=== PATIENT | female | born 1935 | race Caucasian/White ===

== ENCOUNTER 2016-08-01 12:32 | Emergency (ER) | payer MEDICARE, OTHER ==
[2016-08-01 13:33] LABS: #Lymphocytes 1.1 thou/uL (1.20-3.40); #Monocytes 0.5 thou/uL (0.11-0.59); #Neutrophils 4.2 thou/uL (1.40-6.50); %Basophils 0.7 % (0.0-1.0); %Lymphocytes 19.2 % (21.0-51.0); %Monocytes 8.5 % (0.0-10.0); Mean Platelet Volume 9.1 fL (7.4-10.4); Red Blood Cell (RBC) Count 4.01 mill/uL (4.20-5.40); White Blood Cell (WBC) Count 5.9 thou/uL (4.8-10.8)
[2016-08-01] MEDS ORDERED: Sulfameth/Trimethoprim DS 800-160mg TAB ONE (13:59)
--- NOTE | 2016-08-01 14:20 | RAD ---
RIGHT TOES 2 VIEWS: HISTORY: Toe pain. FINDINGS: The bones are demineralized. Postoperative changes with a surgical screw in the base of the first m etatarsal are noted. There is arthritic change of the first metatarsophalangeal joint. There are n o signs of fracture or any acute bony findings. IMPRESSION: Postoperative changes of the first metatarsal and diffuse bony demineralization. POS: QUYNH
--- NOTE | 2016-08-01 14:51 | ERRECORD ---
[facility] EMERGENCY RECORD HPI CELLULITIS (13:10 JLOY) CHIEF COMPLAINT: Patient presents for evaluation of drainage, to Pt with 3 weeks of worseing infection in the right 2nd digit after cutting the skin while trimming her nails. Slowly worsening and her saw it today and told her to go to the ER., Patient presents for evaluation of erythema, Patient presents for evaluation of pain, Patient presents for evaluation of swelling. HISTORIAN: History provided by patient. MECHANISM: Possible mechanism nail cutting. LOCATION: Symptoms are localized, most severe in the toe, on the right. TIME COURSE: Gradual onset of symptoms, Symptoms are worsening, are constant. ASSOCIATED WITH: Associated with drainage, intermittent, No associated fever, No associated nausea, No associated proximal streaking. COMPLICATING FACTORS: No complicating factors. EXACERBATED BY: Patient's condition exacerbated by nothing. RELIEVED BY: Patient's condition relieved by nothing. ROS (13:12 JLOY) CONSTITUTIONAL: Historian denies chills, denies fever. ENT: Historian reports rhinorrhea, denies sore throat. RESPIRATORY: Historian denies cough, denies shortness of breath. GI: Historian denies nausea, denies vomiting. SKIN: Historian reports cellulitis, reports rash. NEUROLOGIC: Historian denies focal weakness, denies paralysis, denies paresthesias, denies sensory changes. PAST MEDICAL HISTORY MEDICAL HISTORY: No past medical history of pulmonary disease, HX breast cancer. Patient denies any history of hypertension or COPD. (12:43 LHAL) FEMALE SURGICAL HISTORY: Left mastectomy. (12:43 LHAL) PSYCHIATRIC HISTORY: No previous psychiatric history, Patient denies any psychiatric history. (12:43 LHAL) SOCIAL HISTORY: Patient drinks every day, less than 5 drinks per day, Patient denies drug use, Patient is a former tobacco user, smoked cigarettes, Tobacco history notes: quit 1.5 years ago but "I still do the vapor, I dont know if it has nicotine". (12:43 LHAL) FAMILY HISTORY: Maternal history of diabetes, Sibling history of cardiac disease:, coronary artery disease, Sibling history of neurologic disorder, ischemic cerebral vascular accident. (12:43 LHAL) NOTES: Nursing records reviewed, Agree with nursing records. (13:13 JL) &a-1R&a+25V*p+0X*z6120X*c202B*c15G*c2P*p-0X&a-25V&a+1R Name: Josephine Boyd : 1935 F81 MedRec: [id number] AcctNum: [id number] Prepared: MonAug 01, 2016 17:53 by Interface Page 1 of 3 pMD [facility] EMERGENCY RECORD KNOWN ALLERGIES iodine: Reaction: Rash CURRENT MEDICATIONS No recorded medications VITAL SIGNS (12:34 [facility]) VITAL SIGNS: BP: 126/68 (Sitting), Pulse: 94 (Regular), Resp: 20 (Non-Labored), Temp: 97.7 (Oral), Pain: 10 (Constant), O2 sat: 96 on Room Air, Time: 08/01/2016 12:34. PHYSICAL EXAM (13:12 JL) CONSTITUTIONAL: Vital signs reviewed, Patient appears non toxic, Patient alert and oriented to person, place and time. EYES: Eye exam included findings of eyelids normal to inspection, Pupils equally round and reactive to light, Conjunctiva normal. ENT: Mouth exam normal, mucous membranes moist. RESPIRATORY CHEST: Respiratory exam included findings of no respiratory distress, Chest exam included findings of chest movement symmetrical. LOWER EXTREMITY: Lower extremity exam included findings of inspection abnormal, Right 2nd digit with mild swelling and redness on distal 1/2 of toe. Yellow crusting on tip with small ulceration noted on the pad of the distal segment. Mild ttp. Mild swelling. No warmth., Range of motion normal, Pedal pulse normal, no cyanosis, no clubbing. NEURO: Priti coma scale 15, Neuro exam findings include patient oriented to person, place and time, Speech normal. SKIN: Skin exam included findings of skin warm, dry, and normal in color, see toe above. PSYCHIATRIC: Normal affect. MEDICATION ADMINISTRATION SUMMARY Drug Name: Bactrim DS, Dose Ordered: 1 tab(s), Route: Oral, Status: Given, Time: 13:58 08/01/2016, Detailed record available in Medication Service section. PROBLEM LIST No recorded problems DIAGNOSIS (13:57 JL) FINAL: PRIMARY: CELLULITIS OF UNSPECIFIED TOE. PRESCRIPTION (13:57 JL) Bactrim DS: TABLET : 800 mg-160 mg : ORAL : Quantity: 1 Unit: tab(s) Route: ORAL Schedule: 2 times a day Dispense: 20 May substitute. Refills: No Refills . NOTES: No Refills. &a-1R&a+25V*p+0X*r2815N*c202B*c15G*c2P*p-0X&a-25V&a+1R Name: Josephine Boyd : 1935 F81 MedRec: [id number] AcctNum: [id number] Prepared: MonAug 01, 2016 17:53 by Interface Page 2 of 3 pMD [facility] EMERGENCY RECORD DISPOSITION PATIENT: Disposition Type: Discharge, Disposition: *Discharge Home. (13:57 FEDERICO) Patient left the department. (14:07 TIFFANIE) Ramirez: FEDERICO=MD Sommers Joshua LHAL=LETTY Nolan, Jaylene &a-1R&a+25V*p+0X*e5907W*c202B*c15G*c2P*p-0X&a-25V&a+1R Name: Josephine Boyd : 1935 F81 MedRec: [id number] AcctNum: [id number] Prepared: MonAug 01, 2016 17:53 by Interface Page 3 of 3 pMD MTDD
--- NOTE | 2016-08-01 14:55 | PICIS ---
[facility] EMERGENCY RECORD TRIAGE (MonAug 01, 2016 12:41 LHAL) TRIAGE NOTES: REDNESS SWELLING TO RT 2ND TOE AFTER TRIMMING NAIL AND CUTTING SKIN 3 WK AGO. (MonAug 01, 2016 12:41 LHAL) PATIENT: NAME: Josephine Boyd, AGE: 81, GENDER: female, : Sat 1935, TIME OF GREET: MonAug 01, 2016 12:33, PREFERRED LANGUAGE: Thai, ETHNICITY: Not or , ECODE BILLING MAP: [facility], SSN: [id number], Zip Code: [address], KG WEIGHT: 76.66, PHONE: , , , PERSON ID: [id number]. (MonAug 01, 2016 12:41 LHAL) COMPLAINT: RIGHT FOOT INFECTED TOE. (MonAug 01, 2016 12:41 LHAL) ADMISSION: URGENCY: 4 Non Urgent, ADMISSION SOURCE: Home, TRANSPORT: CAR, BED: ER *TR1. (MonAug 01, 2016 12:41 LHAL) ASSESSMENT: Assessment: REDNESS, SWELLING TO RIGHT 2ND TOE X 3 WKS AFTER SHE CUT HER TOENAIL AND ACCIDENTALLY HER SKIN, Symptoms began 3 WK AGO. (12:43 LHAL) PAIN: Patient complains of pain described as, aching, on a scale 0-10 patient rates pain as 10, Location RIGHT SECOND TOE, Pain is constant, Aggravating factors:, Pain exacerbated by movement. 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 (12:43 LHAL) SIRS SCORING: Heart Rate 55-109 (0), Temp range 96.8-101.1 (0), respiratory rate 12-24 (0), Mental Status altered: no (0), Yes, Infection or Suspected Infection. (12:43 LHAL) TRIAGE SCREENING: Patient denies suicidal ideation, Patient denies presence of domestic violence. (12:43 LHAL) PROVIDERS: TRIAGE NURSE: Jaylene Nolan RN. (MonAug 01, 2016 12:41 LHAL) VITAL SIGNS: BP 126/68, (Sitting), Pulse 94, (Regular), Resp 20, (Non-Labored), Temp 97.7, (Oral), Pain 10, (Constant), O2 Sat 96, on Room Air, Time 08/01/2016 12:34. (12:34 LHAL) PREVIOUS VISIT ALLERGIES: iodine. (MonAug 01, 2016 12:41 LHAL) iodine. (12:43 LHAL) KNOWN ALLERGIES iodine: Reaction: Rash CURRENT MEDICATIONS No recorded medications VITAL SIGNS (12:34 LHAL) VITAL SIGNS: BP: 126/68 (Sitting), Pulse: 94 (Regular), Resp: 20 (Non-Labored), Temp: 97.7 (Oral), Pain: 10 (Constant), O2 sat: 96 on Room Air, Time: 08/01/2016 12:34. NURSING ASSESSMENT: SKIN (12:41 LHAL) &a-1R&a+25V*p+0X*n8020P*c202B*c15G*c2P*p-0X&a-25V&a+1R Name: Josephine Boyd : 1935 F81 MedRec: [id number] AcctNum: [id number] Prepared: MonAug 01, 2016 17:57 by Interface Page 1 of 6 pMD [facility] EMERGENCY RECORD CONSTITUTIONAL: Patient arrives ambulatory, Gait steady, History obtained from patient, Patient appears, uncomfortable, Patient cooperative, Patient alert, Oriented to person, place and time, Skin warm, Skin dry, Skin normal in color, Mucous membranes pink, Mucous membranes moist, Patient is well-groomed, 1235) AMBULATES TO BED 1 ON ER ARRIVAL SLOW STEADY GAIT USING CANE. PAIN: aching pain, burning pain, No radiation pain, Onset of pain FEW WKS, constant, on a scale 0-10 patient rates pain as 10, Pain exacerbated by, ambulation, PT TOOK TYLENOL THIS AM, OTHERWISE HASN'T BEEN TAKING PAIN MEDS. SKIN: Skin assessment findings include skin warm, Skin dry, Skin normal in color, Inspection findings include redness, to ENTIRE RIGHT SECOND TOE, Inspection findings include signs of infection, to RT SECOND TOE NEAR NAILBED, Inspection findings include no signs of trauma, Inspection findings include swelling, to RIGHT 2ND TOE, Notes: NO DRAINAGE NOTED TO NAILBED, PT HAS BEEN USING NEOSPORIN AND BETADINE TO CLEAN TOE, HASN'T BEEN GETTING BETTER, HASN'T SEEN MD FOR HER TOE OVER THE LAST FEW WKS. NOTES: Notes: PT CUT HER TOENAIL ON RIGHT SECOND TOE 3 WKS AGO, THEN ACCIDENTALLY CUT THE SKIN, NOW HAS RED SWOLLEN TOE X FEW WKS. SAFETY: Side rails up, Cart/Stretcher in lowest position, Family at bedside, Call light within reach, Hospital ID band on. NURSING PROCEDURE: DISCHARGE NOTE (14:05 LHAL) DISCHARGE: Patient discharged to home, ambulating with cane, family driving, accompanied by //partner, Summary of Care printed/ provided, Patient requested and was provided an electronic copy of Discharge Instructions, Transition record given to patient, Discharge instructions given to patient, Simple or moderate discharge teaching performed, by Judi NOLAN RN, Prescriptions given and instructions on side effects given, Name of prescription(s) given: BACTRIM DS, Medication reconciliation form given, and reviewed with patient, Above person(s) verbalized understanding of discharge instructions and follow-up care, Notes: DC HOME STABLE. BELONGINGS: Belongings and valuables with patient upon arrival to the Emergency Department include:. NURSING PROCEDURE: LAB DRAW (13:20 LHAL) PATIENT IDENTIFIER: Patient actively involved in identification process, Patient's identity verified by patient stating name, Patient's identity verified by patient stating date, Patient's identity verified by hospital ID [email or web address], Patient's identity verified by family member. LAB DRAW: Lab draw indicated for obtaining specimens for evaluation, Initial lab draw performed, by venipuncture, from right antecubital, in one attempt, Lab specimens labeled in the presence of the patient and sent to lab. &a-1R&a+25V*p+0X*w2576Z*c202B*c15G*c2P*p-0X&a-25V&a+1R Name: Josephine Boyd : 1935 F81 MedRec: [id number] AcctNum: [id number] Prepared: MonAug 01, 2016 17:57 by Interface Page 2 of 6 pMD [facility] EMERGENCY RECORD FOLLOW-UP: After procedure, dressing applied to site, After procedure, no swelling at site, After procedure, no active bleeding from site. SAFETY: Side rails up, Cart/Stretcher in lowest position, Family at bedside, Call light within reach, Hospital ID band on. NURSING PROCEDURE: NURSE NOTES NURSES NOTES: Patient examined by physician. (13:05 LHAL) Patient re-evaluated by physician. (13:59 LHAL) ORDER DETAILS Order Name: CBC with Differential, Status: Active, Time: 13:10 08/01/2016, User: FEDERICO, - Ordered for: MD Sommers Joshua, - Entered by: MD Sommers Joshua - [facility] Aug 01, 2016 13:10, - Quantity: 1, Order Name: CRP (Inflamatory), Status: Active, Time: 13:10 08/01/2016, User: FEDERICO, - Ordered for: MD Sommers Joshua, - Entered by: MD Sommers Joshua - [facility] Aug 01, 2016 13:10, - Quantity: 1, Order Name: XR Toe(s) Rt Min 2 View, Status: Active, Time: 13:09 08/01/2016, User: FEDERICO, - Ordered for: MD Sommers Joshua, - Entered by: MD Sommers Joshua - [facility] Aug 01, 2016 13:09, - Quantity: 1. MEDICATION ADMINISTRATION SUMMARY Drug Name: Bactrim DS, Dose Ordered: 1 tab(s), Route: Oral, Status: Given, Time: 13:58 08/01/2016, Detailed record available in Medication Service section. MEDICATION SERVICE Bactrim DS: Order: Bactrim DS (sulfamethoxazole/trimethoprim) - Dose: 1 tab(s) : Oral Ordered by: Fredis Sommers MD Entered by: Fredis Sommers MD MonAug 01, 2016 13:56 Documented as given by: Jaylene Nolan RN MonAug 01, 2016 13:58 Patient, Medication, Dose, Route and Time verified prior to administration. Amount given: ONE TAB, Site: Medication administered P.O., Correct patient, time, route, dose and medication confirmed prior to administration, Patient advised of actions and side-effects prior to administration, Allergies confirmed and medications reviewed prior to administration, Administered by Judi NOLAN RN, Patient in position of comfort, Side rails up, Cart in lowest position, Family at bedside. : Follow Up : No signs or symptoms of allergic reaction noted. (14:05 LHAL) &a-1R&a+25V*p+0X*s9022G*c202B*c15G*c2P*p-0X&a-25V&a+1R Name: Josephine Boyd : 1935 F81 MedRec: [id number] AcctNum: [id number] Prepared: MonAug 01, 2016 17:57 by Interface Page 3 of 6 pMD [facility] EMERGENCY RECORD HPI CELLULITIS (13:10 JL) CHIEF COMPLAINT: Patient presents for evaluation of drainage, to Pt with 3 weeks of worseing infection in the right 2nd digit after cutting the skin while trimming her nails. Slowly worsening and her saw it today and told her to go to the ER., Patient presents for evaluation of erythema, Patient presents for evaluation of pain, Patient presents for evaluation of swelling. HISTORIAN: History provided by patient. MECHANISM: Possible mechanism nail cutting. LOCATION: Symptoms are localized, most severe in the toe, on the right. TIME COURSE: Gradual onset of symptoms, Symptoms are worsening, are constant. ASSOCIATED WITH: Associated with drainage, intermittent, No associated fever, No associated nausea, No associated proximal streaking. COMPLICATING FACTORS: No complicating factors. EXACERBATED BY: Patient's condition exacerbated by nothing. RELIEVED BY: Patient's condition relieved by nothing. ROS (13:12 JLOY) CONSTITUTIONAL: Historian denies chills, denies fever. ENT: Historian reports rhinorrhea, denies sore throat. RESPIRATORY: Historian denies cough, denies shortness of breath. GI: Historian denies nausea, denies vomiting. SKIN: Historian reports cellulitis, reports rash. NEUROLOGIC: Historian denies focal weakness, denies paralysis, denies paresthesias, denies sensory changes. PAST MEDICAL HISTORY MEDICAL HISTORY: No past medical history of pulmonary disease, HX breast cancer. Patient denies any history of hypertension or COPD. (12:43 LHAL) FEMALE SURGICAL HISTORY: Left mastectomy. (12:43 LHAL) PSYCHIATRIC HISTORY: No previous psychiatric history, Patient denies any psychiatric history. (12:43 LHAL) SOCIAL HISTORY: Patient drinks every day, less than 5 drinks per day, Patient denies drug use, Patient is a former tobacco user, smoked cigarettes, Tobacco history notes: quit 1.5 years ago but "I still do the vapor, I dont know if it has nicotine". (12:43 LHAL) FAMILY HISTORY: Maternal history of diabetes, Sibling history of cardiac disease:, coronary artery disease, Sibling history of neurologic disorder, ischemic cerebral vascular accident. (12:43 LHAL) NOTES: Nursing records reviewed, Agree with nursing records. (13:13 JLOY) &a-1R&a+25V*p+0X*s4316Q*c202B*c15G*c2P*p-0X&a-25V&a+1R Name: Josephine Boyd : 1935 F81 MedRec: [id number] AcctNum: [id number] Prepared: MonAug 01, 2016 17:57 by Interface Page 4 of 6 pMD [facility] EMERGENCY RECORD PHYSICAL EXAM (13:12 JLOY) CONSTITUTIONAL: Vital signs reviewed, Patient appears non toxic, Patient alert and oriented to person, place and time. EYES: Eye exam included findings of eyelids normal to inspection, Pupils equally round and reactive to light, Conjunctiva normal. ENT: Mouth exam normal, mucous membranes moist. RESPIRATORY CHEST: Respiratory exam included findings of no respiratory distress, Chest exam included findings of chest movement symmetrical. LOWER EXTREMITY: Lower extremity exam included findings of inspection abnormal, Right 2nd digit with mild swelling and redness on distal 1/2 of toe. Yellow crusting on tip with small ulceration noted on the pad of the distal segment. Mild ttp. Mild swelling. No warmth., Range of motion normal, Pedal pulse normal, no cyanosis, no clubbing. NEURO: Priti coma scale 15, Neuro exam findings include patient oriented to person, place and time, Speech normal. SKIN: Skin exam included findings of skin warm, dry, and normal in color, see toe above. PSYCHIATRIC: Normal affect. EVENTS TRANSFER: Triage to Emergency Emergency Room *TR1. (MonAug 01, 2016 12:41 LHAL) Removed from Emergency Emergency Room *TR1. (14:07 LHAL) PROBLEM LIST No recorded problems DIAGNOSIS (13:57 JLOY) FINAL: PRIMARY: CELLULITIS OF UNSPECIFIED TOE. DISPOSITION PATIENT: Disposition Type: Discharge, Disposition: *Discharge Home. (13:57 JLOY) Patient left the department. (14:07 [facility]) INSTRUCTION (13:58 [facility]) DISCHARGE: CELLULITIS. FOLLOWUP: Tyler [place], Jose Alfredo PERSON, [facility], [facility] [address] [facility] [id number], [phone], Follow up with Primary Care Physician in 3-4 days. PRESCRIPTION (13:57 [facility]) Bactrim DS: TABLET : 800 mg-160 mg : ORAL : Quantity: 1 Unit: tab(s) Route: ORAL Schedule: 2 times a day Dispense: 20 May substitute. Refills: No Refills . NOTES: No Refills. &a-1R&a+25V*p+0X*e0851F*c202B*c15G*c2P*p-0X&a-25V&a+1R Name: Josephine Boyd : 1935 F81 MedRec: [id number] AcctNum: [id number] Prepared: MonAug 01, 2016 17:57 by Interface Page 5 of 6 pMD [facility] EMERGENCY RECORD IMAGING (14:06 [facility]) *DISCHARGE INSTRUCTIONS RECEIPT: Image captured from scanner. *SUPPLY CHARGE SHEET: Image captured from scanner. ADMIN DIGITAL SIGNATURE: LETTY Nolan, Jaylene. (14:07 [facility]) MD Sommers Joshua. (17:46 [facility]) Ramirez: FEDERICO=MD Sommers Joshua AL=LETTY Nolan Linda &a-1R&a+25V*p+0X*c5809I*c202B*c15G*c2P*p-0X&a-25V&a+1R Name: Josephine Boyd : 1935 F81 MedRec: [id number] AcctNum: [id number] Prepared: MonAug 01, 2016 17:57 by Interface Page 6 of 6 pMD MTDD
== END 2016-08-01 14:05 | disposition home or self-care (01) ==
LOC: NAV ERS 12:32
DX: L03.031 Cellulitis of right toe (principal); Z85.3 Personal history of malignant neoplasm of breast; Z90.12 Acquired absence of left breast and nipple; Z87.891 Personal history of nicotine dependence
CPT/HCPCS: 85025; 86140; 99283

== ENCOUNTER 2016-11-18 14:00 | Inpatient (IN) | payer MEDICARE, OTHER ==
[2016-11-18 14:40] LABS: Band 4 % (5-11); Hemoglobin 12.2 g/dL (12.0-16.0); Lymphocytes 7 % (21-51); MDiff Complete? YES; Mean Corpuscular HGB CONC 32.6 g/dL (32.0-36.0); Mean Corpuscular Hemoglobin 28.8 pg (27.0-31.0); Mean Corpuscular Volume 88.4 fl (81.0-99.0); Mean Platelet Volume 8.7 fL (7.4-10.4); Monocytes 5 % (0-10); Neutrophil 83 % (42-75); PLT Morphology Comment Appears Adequate; Platelet Count 194 thou/uL (130-400); RBC Distribution Width 13.2 % (11.5-14.5); RBC Morphology Normal; Red Blood Cell (RBC) Count 4.21 mill/uL (4.20-5.40)
[2016-11-18 14:45] LABS: Bilirubin Negative (Negative); Blood, Urine Negative (Negative); Glucose, Urine (Dipstick) 250 mg/dL (Negative); Leukocyte Negative (Negative); Nitrite Negative (Negative); Protein, Urine (Dipstick) 100 mg/dL (Neg-Trace); Urobilinogen 0.2 mg/dL (0.2-1.0)
[2016-11-18 14:47] LABS: ALT (SGPT) 15 U/L (0-55); AST (SGOT) 19 U/L (5-34); Albumin 3.8 g/dL (3.4-4.8); Alkaline Phosphatase 100 U/L (40-150); Anion Gap 20 mmol/L (10-20); BUN (Urea Nitrogen) 24 mg/dL (9.8-20.1); Bilirubin, Total 0.7 mg/dL (0.2-1.2); CK (CPK) 212 U/L (29-168); Calc. Creatinine Clearance 0 mL/min (70-130); Calcium 9.7 mg/dL (7.8-10.44); Carbon Dioxide 20 mmol/L (23-31); Chloride 103 mmol/L (98-107); Estimated GFR-MDRD 34; Globulin 3.6 g/dL (2.4-3.5); Glucose 202 mg/dL (83-110); Protein, Total 7.4 g/dL (5.8-8.1); Sodium 139 mmol/L (136-145)
[2016-11-18 14:47] LABS: Clarity Hazy (Clear); Specific Gravity, Urine 1.028 (1.002-1.036)
[2016-11-18 14:49] LABS: Troponin I 0.059 ng/mL (< 0.028)
[2016-11-18 14:50] LABS: Bacteria/HPF 1+ HPF (None Seen); RBC/HPF None Seen HPF (0-3); WBC/HPF 0-3 HPF (0-3)
[2016-11-18] MEDS ORDERED: Sodium Chloride 0.9% 1,000 ML IV SCH (16:45)
[2016-11-18] MEDS ORDERED: Sodium Chloride 0.9% 10 ML ONE (16:47)
[2016-11-18 17:09] VITALS: BMI 28.0
[2016-11-18] MEDS ORDERED: Ondansetron ODT 4 MG TAB PO PRN (20:35)
[2016-11-18] MEDS: Temazepam 15 MG CAP PO SCH (21:01)
[2016-11-18] MEDS: Famotidine 20 MG TAB PO SCH (21:01)
[2016-11-18] MEDS: Carvedilol 6.25 MG TAB PO SCH (21:02)
[2016-11-18] MEDS: Acetaminophen 325 MG TAB PO PRN (21:06)
[2016-11-19] MEDS: Sodium Chloride 0.9% 1,000 ML IV SCH ×2 (00:10→07:00)
[2016-11-19] MEDS: traMADol HCl 50 MG TAB PO PRN ×2 (00:26→15:03)
--- NOTE | 2016-11-19 01:37 | HP ---
DATE OF ADMISSION: 11/18/2016 PATIENT OF: Dr. Jose Alfredo Jones. HISTORY OF PRESENT ILLNESS: The patient is a 81-year-old white female with history of hypertension, gastroesophageal reflux, hypothyroidism, and recurrent weakness and ataxia for the last several wee ks. She states that this has been related to some weakness mainly in her left leg. She has been ev aluated by Dr. Jones with MRI showing possible AV malformation, but has been seen by Neurosurgery with Neurosurgery recommended cervical spine MRI and was found to have degenerative changes with no high-grade stenosis. Chest CT has only showed left anterior nodule and left adrenal mass, but abdom inal and pelvic CT was done to evaluate this and has shown no evidence of any significant abnormalit ies. This was done without contrast to evaluate for kidney stones. She has been found to have bila teral adrenal adenomas in the past and gallstones, but felt like these were asymptomatic. She has h ad a history of recurrent edema of her legs, which has been treated with torsemide 20 mg daily for c ongestive heart failure, but echocardiogram has shown ejection fraction of 65%-70% with hyperdynamic ventricle and spinal angiogram showed no obvious source for the spinal or AV fistula. She has not had any fever, chills, or significant pain in her leg. She feels strong over entire body, but today , fell and could not get up. She was on the floor for one hour before her came in and broug ht her to the emergency room. She was found to have an elevated CK and decreased renal function wit h a creatinine of 1.49, GFR of 34, and a CK slightly elevated to 212 and was felt to possibly have m ild rhabdomyolysis and acute on chronic renal failure. Her most recent creatinine prior to this chandu wed creatinine of 1.2 with GFR of 43. She was also found in the emergency room to have a slightly e levated white count of 11,000 with a shift to the left 83%. PAST MEDICAL HISTORY: She was felt to require admission for IV fluids for evaluation of her weaknes s in physical therapy. She had been having physical therapy at home, but has not had intensive phys ical therapy in the hospital. Her past medical history otherwise has shown to have a history of elijah ast cancer, status post left mastectomy 30 years ago with no recurrence. Medical history is also p ositive for distant history of smoking with a history of COPD, but the patient denies any cough, chandu rtness of breath, history of gastroesophageal reflux controlled with medication and hiatal hernia, h istory of anxiety and depression, history of hypothyroidism. ALLERGIES: She has a history of allergies to IODINE intermediate with hives, but has had angiogram in the past. SOCIAL HISTORY: She is a nonsmoker, as mentioned above, lives with her . MEDICATIONS: As above include venlafaxine 150 mg daily, temazepam 15 mg daily, furosemide 20 mEq da lindsey, Micro-K 8 mEq daily, carvedilol 6.25 twice daily. REVIEW OF SYSTEMS: HEENT: She denies any headaches, dizziness, change in vision or hearing, hoarseness or dysphagia. PULMONARY: She denies cough, sputum production, pneumonia, asthma, tuberculosis. CARDIOVASCULAR: She denies any chest pain, orthopnea, paroxysmal nocturnal dyspnea or edema. GASTROINTESTINAL: She denies nausea, vomiting, diarrhea, constipation, abdominal pain. GENITOURINARY: Denied dysuria, hematuria, nocturia. MUSCULOSKELETAL: Has pain in both knees now since the fall, but no chronic pain. NEUROLOGIC: She has the above-mentioned difficulty with balance, multiple falls over the last sever al months, and some weakness in her left leg. PHYSICAL EXAMINATION: GENERAL: The patient is an elderly white female, alert and oriented, lucid, and a fair historian. VITAL SIGNS: Blood pressure 125/57, O2 sats 95%, temperature 97, pulse 92, respirations 20. HEENT: Pupils are equal, round, and react to light and accommodation. Sclerae are anicteric. Conj unctivae pale. Oral mucous membranes slightly hydrated. NECK: Supple. There are no nodes or masses. JVP is not elevated. LUNGS: Clear. CARDIAC EXAMINATION: Shows a regular rhythm, S4, no gallops or murmurs. ABDOMEN: Soft, nontender with no masses or organomegaly. SKIN/EXTREMITIES: Show erythema and mild tenderness and warmth of the left foot below the ankle. T here is 1+ edema in both legs, but she has decreased pulses bilaterally and no palpable pedal pulses on the left. There are multiple contusions and abrasions on both arms. ASSESSMENT: A 81-year-old white female with a history of recurrent falling spells and ataxia who webb s fallen today, remained on the floor for hours, has developed mild rhabdomyolysis and an mild acute on chronic renal failure and admitted to the hospital for IV fluids and rehydration. She, however, has had neurosurgical evaluation, but has not had a vascular evaluation for weakness in her left le g and now has erythema, warmth, and tenderness of her left foot consistent with possible ischemia an d/or infection. PLAN: Obtain CRP, sed rate. We will start on Ancef 1 gram IV piggyback q.8 hours, may require an a ngiogram in the future, but as she has an IODINE allergy, we will probably require protocol for this at [place] next week. We will continue on IV normal saline at 125 an hour. Repeat basic met profile and CK in the a.m. with possibly decrease rate at that time to 75/50 mL per hour. We will consult physical therapy for strengthening and ataxia training. We will hold furosemide and potassium at th is time.
[2016-11-19 06:58] LABS: Anion Gap 13 mmol/L (10-20); Globulin 2.2 g/dL (2.4-3.5)
[2016-11-19] MEDS: Acetaminophen 325 MG TAB PO PRN ×2 (06:59→15:03)
[2016-11-19 07:14] LABS: Band 3 % (5-11); Eosinophils 1 % (0-10); Hemoglobin 10.1 g/dL (12.0-16.0); Lymphocytes 26 % (21-51); MDiff Complete? YES; Mean Corpuscular HGB CONC 32.5 g/dL (32.0-36.0); Mean Corpuscular Hemoglobin 29.2 pg (27.0-31.0); Mean Corpuscular Volume 89.8 fl (81.0-99.0); Mean Platelet Volume 9.5 fL (7.4-10.4); Neutrophil 70 % (42-75); PLT Morphology Comment Appears Adequate; Platelet Count 144 thou/uL (130-400); RBC Distribution Width 13.7 % (11.5-14.5); RBC Morphology Normal; Red Blood Cell (RBC) Count 3.45 mill/uL (4.20-5.40); White Blood Cell (WBC) Count 4.8 thou/uL (4.8-10.8)
[2016-11-19 07:19] LABS: CKMB 7.1 ng/mL (0-6.6)
[2016-11-19 07:21] LABS: ALT (SGPT) 14 U/L (0-55); AST (SGOT) 22 U/L (5-34); Albumin 2.9 g/dL (3.4-4.8); Alkaline Phosphatase 78 U/L (40-150); BUN (Urea Nitrogen) 15 mg/dL (9.8-20.1); Bilirubin, Total 0.6 mg/dL (0.2-1.2); CK (CPK) 366 U/L (29-168); Calc. Creatinine Clearance 51 mL/min (70-130); Calcium 8.3 mg/dL (7.8-10.44); Carbon Dioxide 21 mmol/L (23-31); Chloride 112 mmol/L (98-107); Estimated GFR-MDRD 52; Glucose 95 mg/dL (83-110); Potassium 3.5 mmol/L (3.5-5.1); Protein, Total 5.1 g/dL (5.8-8.1); Sodium 142 mmol/L (136-145)
[2016-11-19 08:32] LABS: Troponin I 0.039 ng/mL (< 0.028)
[2016-11-19] MEDS: Potassium Chloride 8 MEQ TAB PO SCH (09:16)
[2016-11-19] MEDS: Famotidine 20 MG TAB PO SCH ×2 (09:16→21:03)
[2016-11-19] MEDS: Venlafaxine HCl XR 75 MG CAP PO SCH (09:17)
[2016-11-19] MEDS: Carvedilol 6.25 MG TAB PO SCH ×2 (09:17→21:03)
[2016-11-19] MEDS: Dextrose 5 % And 0.9 % NaCl 1,000 ML IV SCH ×2 (10:14→21:26)
--- NOTE | 2016-11-19 10:56 | PRG ---
DATE OF SERVICE: 11/19/2016 SUBJECTIVE: The patient feels the same today, slept well through the night with no nausea or vomiti ng, no pain in her leg or weakness, but states she is very dizzy and still unable to walk and has no use in her left leg. OBJECTIVE: Shows her troponin came back negative at 0.039, although her CK has increased further to 366, creatinine is improved to 1.02 from 1.49, BUN is 15, chloride is 112, bicarbonate is 21, sodiu m is 142, potassium 3.5. C-reactive protein returned normal less than 0.5. BNP was slightly elevat ed at 121. Sedimentation rate returned normal at 19. White count 4800, hematocrit 31, hemoglobin 1 0. Lungs are clear. Cardiac examination shows regular rhythm. Neurological shows mild weakness in the left leg. There is decreased erythema, persistent edema of the left leg and decreased warmth. ASSESSMENT: Resolving acute renal failure secondary to rhabdomyolysis, persistent elevated CK from rhabdomyolysis with negative troponin, persistent weakness in the left foot with some erythema with a negative neurological evaluation, concern about possible latent peripheral vascular disease with n o evidence of acute infection. PLAN: Repeat troponin in the morning. Continue PT, OT. Discuss a CT angiogram with prophylaxis fo r IODINE allergy with patient. Decrease IV fluids to 75 an hour and repeat base met profile in the a.m.
[2016-11-19] MEDS: Temazepam 15 MG CAP PO SCH (21:04)
[2016-11-20] MEDS: Acetaminophen 325 MG TAB PO PRN ×2 (05:29→10:20)
[2016-11-20 06:04] LABS: Anion Gap 12 mmol/L (10-20); BUN (Urea Nitrogen) 14 mg/dL (9.8-20.1); CK (CPK) 251 U/L (29-168); Calc. Creatinine Clearance 53 mL/min (70-130); Calcium 8.3 mg/dL (7.8-10.44); Carbon Dioxide 20 mmol/L (23-31); Chloride 113 mmol/L (98-107); Estimated GFR-MDRD 55; Glucose 110 mg/dL (83-110); Potassium 3.9 mmol/L (3.5-5.1); Sodium 141 mmol/L (136-145)
[2016-11-20 06:05] LABS: CKMB 4.8 ng/mL (0-6.6); Troponin I 0.013 ng/mL (< 0.028)
[2016-11-20] MEDS: Saccharomyces boulardii 250 MG CAP PO SCH (09:13)
[2016-11-20] MEDS: Famotidine 20 MG TAB PO SCH ×2 (09:13→20:44)
[2016-11-20] MEDS: Venlafaxine HCl XR 75 MG CAP PO SCH (09:13)
[2016-11-20] MEDS: Potassium Chloride 8 MEQ TAB PO SCH (09:14)
[2016-11-20] MEDS: traMADol HCl 50 MG TAB PO PRN (09:15)
[2016-11-20] MEDS: Dextrose 5 % And 0.9 % NaCl 1,000 ML IV SCH ×2 (09:21→21:29)
[2016-11-20] MEDS: Carvedilol 6.25 MG TAB PO SCH ×2 (09:21→20:45)
--- NOTE | 2016-11-20 10:43 | RAD ---
PA AND LATERAL VIEWS OF CHEST: Date: 11/20/16 HISTORY: CHF. FINDINGS: Comparison made with exam of 11/14/14. The heart size is normal. The aorta is tortuous. The lungs are well expanded without focal areas of consolidation, pneumothorax, or pleural effusions. IMPRESSION: No acute process. POS: [facility]
--- NOTE | 2016-11-20 12:01 | PRG ---
DATE OF SERVICE: 11/20/[address] Jose Alfredo Jones. SUBJECTIVE: Patient states she did not sleep well last night as she was continuingly having to urin ate, although she had no dysuria or hematuria. She denies any shortness of breath, but did not have any physical therapy yesterday and still feels that she is somewhat weak, does not complain of any pain in her legs, but still has some swelling in both legs. OBJECTIVE: Vital signs show to be stable and blood pressure 106/58, O2 sats 98%, respirations 18, p ulse 80, afebrile. Lungs clear, although the patient does appear to have some occasional tachypnea. Cardiac examination showed regular rhythm. Skin and extremities show persistent 1-2+ edema of bot h legs, but with markedly improved erythema and warmth of the left leg. Abdomen is soft and nontend er. LABORATORY DATA: Show urine culture is still pending. CK is down to 251 from 366; yesterday, creat inine is to improved 0.98 from 1.02, BUN 14. Sodium is 141, chloride 113, bicarbonate is 20. ASSESSMENT: 1. Resolving mild rhabdomyolysis with no evidence of renal dysfunction 2. Persistent weakness and ataxia, falling spells, awaiting physical therapy again tomorrow. 3. Recurrent edema of both legs, left greater than right with some erythema, warmth of the left leg , improving with oral antibiotics. 4. History of weakness in the left leg by history, but not demonstrated on examination, concern for ischemia has improved as erythema and warmth have improved. PLAN: Start PT, OT tomorrow, give oxybutynin at night for frequency. Obtain results of urine cultu re. Continue antibiotics for possible urinary tract infection until her culture returns and/or poss ible cellulitis as an etiology of warm, left swollen foot still undetermined, but is improving. Her check chest x-ray today determined if fluid overload commencing have probably discontinue fluids to [place] and repeat CK tomorrow. Dr. Jones to return to care for patient tonight.
[2016-11-20] MEDS: Temazepam 15 MG CAP PO SCH (20:44)
[2016-11-20] MEDS: Oxybutynin Chloride 5 MG TAB PO SCH (20:45)
[2016-11-21] MEDS: Acetaminophen 325 MG TAB PO PRN (05:36)
[2016-11-21] MEDS: traMADol HCl 50 MG TAB PO PRN (06:19)
[2016-11-21] MEDS: Dextrose 5 % And 0.9 % NaCl 1,000 ML IV SCH (07:37)
[2016-11-21] MEDS: Famotidine 20 MG TAB PO SCH ×2 (07:46→20:26)
[2016-11-21] MEDS: Potassium Chloride 8 MEQ TAB PO SCH (08:40)
[2016-11-21] MEDS: Carvedilol 6.25 MG TAB PO SCH ×2 (08:40→20:26)
[2016-11-21] MEDS: Venlafaxine HCl XR 75 MG CAP PO SCH (08:40)
[2016-11-21] MEDS: Saccharomyces boulardii 250 MG CAP PO SCH (08:40)
[2016-11-21] MEDS ORDERED: Dextrose 5 % And 0.9 % NaCl 1,000 ML IV SCH (16:16)
[2016-11-21] MEDS: Oxybutynin Chloride 5 MG TAB PO SCH (20:25)
[2016-11-21] MEDS: Temazepam 15 MG CAP PO SCH (20:27)
[2016-11-21] MEDS ORDERED: OLANZapine 5 MG TAB PO SCH (21:00)
[2016-11-22] MEDS: traMADol HCl 50 MG TAB PO PRN (01:25)
[2016-11-22] MEDS: Acetaminophen 325 MG TAB PO PRN (01:26)
[2016-11-22] MEDS ORDERED: Levothyroxine Sodium 75 MCG TAB PO SCH (06:00)
[2016-11-22 06:19] LABS: ALT (SGPT) 13 U/L (0-55); AST (SGOT) 23 U/L (5-34); Albumin 2.9 g/dL (3.4-4.8); Alkaline Phosphatase 84 U/L (40-150); Anion Gap 15 mmol/L (10-20); BUN (Urea Nitrogen) 13 mg/dL (9.8-20.1); Bilirubin, Total 0.5 mg/dL (0.2-1.2); CK (CPK) 145 U/L (29-168); Calc. Creatinine Clearance 59 mL/min (70-130); Carbon Dioxide 19 mmol/L (23-31); Chloride 112 mmol/L (98-107); Estimated GFR-MDRD 63; Globulin 2.7 g/dL (2.4-3.5); Glucose 109 mg/dL (83-110); Potassium 4.1 mmol/L (3.5-5.1); Protein, Total 5.6 g/dL (5.8-8.1); Sodium 142 mmol/L (136-145)
[2016-11-22 07:08] LABS: Hemoglobin 12.2 g/dL (12.0-16.0); Mean Corpuscular HGB CONC 32.9 g/dL (32.0-36.0); Mean Corpuscular Hemoglobin 29.2 pg (27.0-31.0); Mean Corpuscular Volume 88.7 fL (81.0-99.0); Mean Platelet Volume 7.8 fL (7.4-10.4); Platelet Count 125 thou/uL (130-400); RBC Distribution Width 13.5 % (11.5-14.5); Red Blood Cell (RBC) Count 4.16 mill/uL (4.20-5.40); White Blood Cell (WBC) Count 7.6 thou/uL (4.8-10.8)
[2016-11-22 07:09] LABS: #Basophils 0.1 thou/uL (0.0-0.2); #Eosinphils 0.2 thou/uL (0.0-0.7); #Lymphocytes 1.4 thou/uL (1.20-3.40); #Monocytes 0.7 thou/uL (0.11-0.59); #Neutrophils 5.2 thou/uL (1.40-6.50); %Basophils 1.1 % (0.0-1.0); %Eosinophils 2.5 % (0.0-10.0); %Lymphocytes 18.4 % (21.0-51.0)
[2016-11-22 07:10] LABS: PLT Morphology Comment Appears Adequate
[2016-11-22 07:35] VITALS: TEMP 97.5
[2016-11-22] MEDS: Famotidine 20 MG TAB PO SCH (08:54)
[2016-11-22] MEDS: Carvedilol 6.25 MG TAB PO SCH (08:54)
[2016-11-22] MEDS: Potassium Chloride 8 MEQ TAB PO SCH (08:54)
[2016-11-22] MEDS: Saccharomyces boulardii 250 MG CAP PO SCH (08:55)
[2016-11-22] MEDS: Venlafaxine HCl XR 75 MG CAP PO SCH (08:55)
--- NOTE | 2016-11-22 11:27 | PRG ---
DATE OF SERVICE: 11/21/2016 SUBJECTIVE: Ms. Boyd is a very pleasant 81-year-old white female that apparently was spreading a qu ilt over her bed in her room when she fell. She landed on the floor, was unable to get up and she s pent several hours on the floor. Eventually, her came on, she was brought to the emergency room and found to have rhabdomyolysis and extreme weakness. She was admitted to the hospital, [facility] and actually is doing very well except she is still extremely weak. She is able to walk to t he door frame from her bed and also about it. She states she is really awake and really wobbly not sure why she was falling. She has no other com plaints. OBJECTIVE: VITAL SIGNS: This morning reveals blood pressure 143/65, pulse 78-88, respirations 18-20, O2 sat 97 -99% on room air. T-max is 98.0. GENERAL: This is a well-developed, well-nourished, thin, white female in no apparent distress at th is time. HEENT: Reveals normocephalic, nontraumatic cranium. The pupils are equally round and reactive. Ex traocular movements are intact. Nose and throat are clear, but dry. NECK: Supple, without masses, nodes or bruits. CHEST: Clear to auscultation. No rales, rhonchi or wheezes are heard. HEART: Reveals a regular rate and rhythm without murmurs, gallops or rubs. ABDOMEN: Soft, scaphoid, nontender, without organomegaly. Normal bowel sounds noted. No rebound o r guarding is noted. GENITOURINARY: Deferred. EXTREMITIES: Reveal left-sided weakness with some bilateral 1-2+ edema with MADIHA hose and some eryth brandon was significantly decreased. LABORATORY: Laboratory this morning reveals white count 4800 with hemoglobin 10.1, hematocrit 31.0, platelet count 144,000. Sodium 141, potassium 3.9, chloride 103, carbon dioxide 20 with a BUN of 1 4, creatinine 0.98, which is down from 1.49. Calcium is 110. Her CK-MB has gone from 366 down to 1 91 today. Her troponin was gone up from 7-4.8. ASSESSMENT: 1. Acute renal insufficiency, resolving. 2. Rhabdomyolysis causing acute renal insufficiency. 3. Slowly decreasing abnormal CKs from the rhabdomyolysis. 4. Persistent left-sided weakness in the foot with some erythema and bilateral swelling, possible p eripheral vascular disease. 5. Chronic obstructive pulmonary disease. 6. Hyperlipidemia. 7. Osteoarthritis. 8. Gastroesophageal reflux disease. 9. Anxiety disorder. 10. Hypertension. 11. Hypothyroidism. PLAN: 1. Continue to follow the patient's blood pressure closely. 2. Follow up with the patient for signs and symptoms of congestive heart failure, increased edema. 3. Continue physical therapy and occupational therapy. 4. We will put in a consult for occupational therapy. 5. Continue IV antibiotics for persistent erythema in the left leg. 6. Continue PT and OT. 7. Continue DVT and stress ulcer prophylaxis. 8. Continue decubitus precautions.
[2016-11-22 15:53] VITALS: BP 112/56
--- NOTE | 2016-11-22 18:40 | PRG ---
DATE OF SERVICE: 11/22/2016 SUBJECTIVE: Ms. Boyd is a very pleasant 81-year-old white female who got ill and much, much weaker. She has had decreased appetite, stopped taking her levothyroxine and stopped taking her Zyprexa. She has not been eating or drinking as well. Basically, she was seen in the emergency room and foun d to have a white count of 28,000, slightly anemic at 11 and 32. She got a couple liters of fluid a nd felt much better. She was admitted to the hospital and placed on IV antibiotics for cellulitis o f her leg. The patient seemed to be doing much better today, although she had difficulty standing for very long . She is not able to walk because she is still very weak and therefore we have qualified her to go to swing bed for physical therapy, occupational therapy and continued IV antibiotics. The patient states she feels somewhat better, but she is very weak and is able to stand, but not for a very long. We are working with physical therapy and occupational therapy. OBJECTIVE: GENERAL: This is a well-developed, well-nourished, very pleasant white female in no apparent distre ss at this time. VITAL SIGNS: Today, revealed a blood pressure of 153/74, pulse 78-79, respirations 18-20, O2 sat 97 % to 99% on room air and temperature max is 98.8. HEENT: Reveals normocephalic and nontraumatic cranium. The pupils are equally round and reactive. Extraocular movements are intact. Nose and throat are slightly dry. NECK: Supple, without masses, nodes or bruits. CHEST: Clear to auscultation. No rales, rhonchi or wheezes are heard. HEART: Reveals a regular rate and rhythm without murmurs, gallops or rubs. ABDOMEN: Soft and nontender, without organomegaly. Normal bowel sounds are noted. No rebound or g uarding is noted. GENITOURINARY: Deferred. EXTREMITIES: Reveal no clubbing or cyanosis, with 1+ edema, which is improved. She has no signific ant warmth in the left leg. LABORATORY DATA: Today, reveals a white count of 7600 with a hemoglobin of 12.2, hematocrit of 36.9 and platelet count of 125,000. She has 18% lymphocytes. This morning, sodium was 142, potassium 4 .1, chloride 112, carbon dioxide 19 with a BUN of 13, creatinine of 0.87 and had a GFR of 63, which is much improved over her GFR of 34. The patient's creatine kinase this morning was normal at 145. Urine culture still reveals no growth at 36 and 48 hours. ASSESSMENT: 1. Resolving mild rhabdomyolysis with renal function back to normal. 2. Weakness and ataxia, awaiting physical therapy and occupational therapy. 3. Edema to both legs, much improved. 4. Generalized weakness. 5. Chronic obstructive pulmonary disease. 6. Hyperlipidemia. 7. Osteoarthritis. 8. Gastroesophageal reflux disease 9. Anxiety and depressive disorder. 10. Hypertension. 11. Hypothyroidism. PLAN: The patient will be discharged at this time. We would admit her to swing bed for continued p hysical therapy and occupational therapy and for continued IV antibiotics. We will continue to watc h her closely. We will continue to watch for deep venous thrombosis and stress ulcer prophylaxis an d continue with decubitus precautions.
== END 2016-11-22 10:45 | disposition swing bed (61) | DRG 683 ==
LOC: NAV ERS 14:00 → NAV ACUTE 16:00 → OBSVTOIN 20:35
PROVIDERS: ADMIT Internal Medicine; ATTEND Internal Medicine
DX: N17.9 Acute kidney failure, unspecified (principal); M62.82 Rhabdomyolysis; J44.9 Chronic obstructive pulmonary disease, unspecified; I13.0 Hypertensive heart and chronic kidney disease with heart failure and stage 1 through stage 4 chronic kidney disease, or unspecified chronic kidney disease; I50.9 Heart failure, unspecified; L03.116 Cellulitis of left lower limb; Z91.14 Patient's other noncompliance with medication regimen; R63.0 Anorexia; D64.9 Anemia, unspecified; R53.1 Weakness; R27.0 Ataxia, unspecified; E78.5 Hyperlipidemia, unspecified; M19.90 Unspecified osteoarthritis, unspecified site; K21.9 Gastro-esophageal reflux disease without esophagitis; F41.9 Anxiety disorder, unspecified; F32.9 Major depressive disorder, single episode, unspecified; E03.9 Hypothyroidism, unspecified; Z87.891 Personal history of nicotine dependence; R29.6 Repeated falls; S40.022A Contusion of left upper arm, initial encounter; S40.021A Contusion of right upper arm, initial encounter; N18.9 Chronic kidney disease, unspecified; Z91.041 Radiographic dye allergy status; W01.0XXA Fall on same level from slipping, tripping and stumbling without subsequent striking against object, initial encounter
CPT/HCPCS: 36415; 71020; 80048; 80053; 81003; 81015; 82550; 82553; 83880; 84484; 85007; 85025; 85027; 85652; 86140; 93005; 96360; A4216; G8978-GP-CJ; G8979-GP-CI; J0690; J7042; J7050

== ENCOUNTER 2016-11-22 11:13 | Inpatient (IN) | payer MEDICARE, OTHER ==
[2016-11-22 14:03] VITALS: BMI 23.2
[2016-11-22] MEDS: OLANZapine 5 MG TAB PO SCH (20:34)
[2016-11-22] MEDS: Famotidine 20 MG TAB PO SCH (20:34)
[2016-11-22] MEDS: Temazepam 15 MG CAP PO SCH (20:34)
[2016-11-22] MEDS: Oxybutynin Chloride 5 MG TAB PO SCH (20:35)
[2016-11-22] MEDS: Carvedilol 6.25 MG TAB PO SCH (20:35)
[2016-11-22] MEDS: Dextrose 5 % And 0.9 % NaCl 1,000 ML IV SCH (20:38)
[2016-11-23] MEDS: Levothyroxine Sodium 75 MCG TAB PO SCH (05:35)
[2016-11-23] MEDS: Famotidine 20 MG TAB PO SCH ×2 (08:44→20:31)
[2016-11-23] MEDS: Carvedilol 6.25 MG TAB PO SCH ×2 (08:44→20:31)
[2016-11-23] MEDS: Saccharomyces boulardii 250 MG CAP PO SCH (08:44)
[2016-11-23] MEDS: Potassium Chloride 8 MEQ TAB PO SCH (08:44)
[2016-11-23] MEDS: Dextrose 5 % And 0.9 % NaCl 1,000 ML IV SCH (17:30)
[2016-11-23] MEDS: OLANZapine 5 MG TAB PO SCH (20:32)
[2016-11-23] MEDS: Oxybutynin Chloride 5 MG TAB PO SCH (20:32)
[2016-11-23] MEDS: Temazepam 15 MG CAP PO SCH (20:32)
--- NOTE | 2016-11-24 04:30 | HP ---
DATE OF ADMISSION: 11/22/2016 HISTORY OF PRESENT ILLNESS: Ms. Boyd is a very pleasant 81-year-old white female that was initially seen in the emergency room at [facility] after falling and staying on the floor for several hours. She was evaluated and found to have some rhabdomyolysis with some renal insufficien cy and a urinary tract infection. She was started on IV antibiotics and admitted to the hospital [facility]. She spent a couple days in the acute care and actually doing very well, but had sig nificant generalized weakness, and is not able to walk by herself yet. It is felt that she needed c ontinued IV antibiotics and physical therapy and occupational therapy. She was therefore discharged yesterday and admitted to the swing bed yesterday. CURRENT MEDICATIONS: Reveal she is presently on the followin. Tylenol 325 q.6 h. p.r.n. 2. Carvedilol 6.25 b.i.d. 3. Cefazolin 1 gram IV q.8 h. 4. Pepcid 20 mg b.i.d. 5. Levothyroxine 75 mcg each morning. 6. Zyprexa 10 mg at bedtime. 7. Zofran 4 mg p.r.n. nausea and vomiting. 8. Ditropan 5 mg every evening. 9. Potassium chloride 8 mEq each morning. 10. Florastor 250 mg daily. 11. Temazepam 15 mg at bedtime. 12. Tramadol 50 mg q.6 h. p.r.n. SOCIAL HISTORY: Reveals the patient stopped smoking, but she has a 50+ pack year history of smoking in the past. She has no alcohol intake, no drugs. PRESENT MEDICATIONS: As noted above. ALLERGIES: The patient noted to be allergic to IODINE from an angiogram in the past. PAST MEDICAL HISTORY: 1. Positive for breast cancer, status post left mastectomy 30 years ago. 2. COPD. 3. Gastroesophageal reflux. 4. Anxiety depressive disorder. 5. Hypothyroidism. 6. Hyperlipidemia. 7. Osteoarthritis. 8. Hypertension. PAST SURGICAL HISTORY: 1. 1984 - Left mastectomy. 2. 1998 - Exostosis of the hard palate. 3. 2007 - EGD with Dr. Jackson. 4. 1999 - Colonoscopy by Dr. Jackson. FAMILY HISTORY: Reveals patient's father at the age of 66 of phlebitis. The patient's mother at the age of 67 of diabetes and depression. The patient had 2 brothers, 1 had a stroke and th e other had a PA. The patient had 6 sisters in which 2 of cancer. Family history is positive for breast cancer, diabetes, hypertension, heart attack, strokes and arthritis. REVIEW OF SYSTEMS: Reveal the patient states she is feeling much better. She is just very weak. S he denies any fever, chills or night sweats. She states she has no vision problems. She has no jade nge in her hearing problems. She is not significantly short of breath, although she does get really tired when she gets up and moves around and tends to fall backwards. She denies any chest pain, ra cing or skipping heartbeats, slow or abnormal heartbeats. Denies any cough, cold, congestion, or wh eezing. Denies any nausea, vomiting, diarrhea, constipation or bloody stools. Denies any change in her urination, although she urinates frequently. She does have urinary incontinence. She states h er musculoskeletal is that she was very weak when she fell down. She did not know if she was ever g oing to get up because she was so weak at home. She continued to have some arthritis and has been e valuated in the past, but does not seem to be any better. She denies any skin problems. PHYSICAL EXAMINATION: GENERAL: This is a very thin, well-developed, well-nourished, white female in no apparent distress at this time. HEENT: Reveals normocephalic, nontraumatic cranium. The pupils are equally round and reactive. Ex traocular movements are intact. Nose and throat are somewhat dry, but clear. NECK: Supple, without masses, nodes or bruits. CHEST: Clear to auscultation. No rales, rhonchi or wheezes are heard. No cough is noted at this t jarek. HEART: Reveals a regular rate and rhythm without murmurs, gallops or rubs. ABDOMEN: Soft, nontender, without organomegaly. No rebound or guarding is noted. Normal bowel claudia nds are noted. : Deferred. EXTREMITIES: Reveal left leg with some erythema which is pretty much gone. The patient has trace e billie in both legs. She has multiple abrasions and contusions of both arms still from falling. ASSESSMENT: 1. Urinary tract infection responding well to her IV antibiotics. 2. Hypertension, which is stable. 3. Hyperlipidemia. 4. Hypothyroidism. 5. Rhabdomyolysis, which is much improved. 6. Dehydration, which is pretty much resolved. 7. History of breast cancer 30 years ago. PLAN: 1. Continue Ancef 1 gram IV q.8 h. 2. Continue physical therapy. 3. Continue occupational therapy. 4. Continue present medications. 5. Encourage the patient to continue eating. 6. Continue home Lasix and potassium at this time. 7. Continue to follow electrolytes. 8. I had a long discussion with the patient today, she is not happy that she has to stay in the [facility] for physical therapy and occupational therapy, but she does realize that she is still in a whe elchair and is unable to get up and walk by herself and become independent. She does live with her at home, but he is not in the house all the time and last time he left her alone she fell an d was unable to get up. 9. Expected length of stay is 5-10 days mainly for physical therapy and occupational therapy.
[2016-11-24] MEDS: Levothyroxine Sodium 75 MCG TAB PO SCH (05:28)
[2016-11-24] MEDS: Potassium Chloride 8 MEQ TAB PO SCH (08:31)
[2016-11-24] MEDS: Famotidine 20 MG TAB PO SCH ×2 (08:31→20:16)
[2016-11-24] MEDS: Carvedilol 6.25 MG TAB PO SCH ×2 (08:31→20:16)
[2016-11-24] MEDS: Saccharomyces boulardii 250 MG CAP PO SCH (08:31)
[2016-11-24] MEDS: OLANZapine 5 MG TAB PO SCH (20:15)
[2016-11-24] MEDS: Temazepam 15 MG CAP PO SCH (20:16)
[2016-11-24] MEDS: Oxybutynin Chloride 5 MG TAB PO SCH (20:16)
[2016-11-25 04:44] LABS: Bacteria/HPF None Seen HPF (None Seen); Bilirubin Negative (Negative); Blood, Urine Negative (Negative); Clarity Clear (Clear); Glucose, Urine (Dipstick) Negative (Negative); Leukocyte Negative (Negative); Nitrite Negative (Negative); Protein, Urine (Dipstick) Negative (Neg-Trace); RBC/HPF None Seen HPF (0-3); Specific Gravity, Urine 1.015 (1.005-1.030); Squamous Epithelial 0-3 HPF (0-3); Urobilinogen 0.2 mg/dL (0.2-1.0); WBC/HPF None Seen HPF (0-3)
[2016-11-25] MEDS: Levothyroxine Sodium 75 MCG TAB PO SCH (05:14)
[2016-11-25 05:26] LABS: Band 2 % (5-11); Lymphocytes 16 % (21-51); MDiff Complete? YES; Mean Corpuscular HGB CONC 32.6 g/dL (32.0-36.0); Mean Corpuscular Hemoglobin 29.1 pg (27.0-31.0); Mean Corpuscular Volume 89.3 fl (81.0-99.0); Mean Platelet Volume 8.4 fL (7.4-10.4); Monocytes 7 % (0-10); Neutrophil 75 % (42-75); PLT Morphology Comment Appears Adequate; Platelet Count 173 thou/uL (130-400); RBC Morphology Normal; Red Blood Cell (RBC) Count 3.78 mill/uL (4.20-5.40); White Blood Cell (WBC) Count 4.8 thou/uL (4.8-10.8)
[2016-11-25 05:35] LABS: ALT (SGPT) 7 U/L (0-55); AST (SGOT) 17 U/L (5-34); Albumin 3.2 g/dL (3.4-4.8); Alkaline Phosphatase 86 U/L (40-150); Anion Gap 13 mmol/L (10-20); BUN (Urea Nitrogen) 13 mg/dL (9.8-20.1); Bilirubin, Total 0.6 mg/dL (0.2-1.2); Calc. Creatinine Clearance 44 mL/min (70-130); Calcium 9.1 mg/dL (7.8-10.44); Carbon Dioxide 24 mmol/L (23-31); Chloride 110 mmol/L (98-107); Estimated GFR-MDRD 46; Globulin 2.7 g/dL (2.4-3.5); Glucose 317 mg/dL (83-110); Potassium 3.8 mmol/L (3.5-5.1); Protein, Total 5.9 g/dL (5.8-8.1); Sodium 143 mmol/L (136-145)
[2016-11-25] MEDS: Dextrose 5 % And 0.9 % NaCl 1,000 ML IV SCH (06:38)
[2016-11-25] MEDS: Saccharomyces boulardii 250 MG CAP PO SCH (08:52)
[2016-11-25] MEDS: Acetaminophen 325 MG TAB PO PRN (08:53)
[2016-11-25] MEDS: Carvedilol 6.25 MG TAB PO SCH ×2 (08:53→20:14)
[2016-11-25] MEDS: Potassium Chloride 8 MEQ TAB PO SCH (08:53)
[2016-11-25] MEDS: Famotidine 20 MG TAB PO SCH ×2 (08:53→20:14)
[2016-11-25] MEDS: traMADol HCl 50 MG TAB PO PRN (08:54)
--- NOTE | 2016-11-25 13:55 | PRG ---
DATE OF SERVICE: 11/25/2016 SUBJECTIVE: The patient is a very pleasant 81-year-old white female, initially seen in the emergenc y room at [facility] after falling down. She remained on the floor for several hour s and was eventually found by her and brought her to the emergency room with some rhabdomyol ysis and had some renal insufficiency and urinary tract infection. Dr. Hall admitted her to the hospital and placed her on the first antibiotic of cefazolin 1 gram IV q.8 hours at 07/31/2000 at 2 200 hours. She was admitted to the hospital and has continued on that for her urinary tract infection is much i mproved. She has had significant weakness though and so there she was transferred to swing bed for continued physical therapy, occupational therapy, which she get also finish out her IV antibiotics. She is in a very good mood this morning, she states she walked better. Her stamina is getting indu r and she is worried about getting some topical bicycle contraction to increase her strength. She h as no other complaints at this time. Her vital signs this morning, revealed a blood pressure of 129 /59, pulse 97-119, respirations are 20, O2 sat is 96% on room air and T-max is 97.6. Her laboratory this morning, revealed a white count of 4800 with a hemoglobin 11.0, hematocrit 33.8 and a platelet count of 173,000. Chemistry revealed a sodium of 143, potassium of 3.8, chloride of 110, carbon dioxide of 24 with a B UN of 13 and a creatinine of 114. She should drink a little more liquids. Her albumin is little low at 3.2. Her globulin is 2.7. Prealbumin was done which is 20 which is be tter than expected and her TSH is down to 5.3844. The patient had stopped taking her thyroid medici ne recently because she did not think she needed it. Urinalysis was done, which was unremarkable. OBJECTIVE: GENERAL: This is a well-developed, well-nourished, very pleasant white female who has been almost e maciated, in no apparent distress at this time. HEENT: Reveals normocephalic and nontraumatic cranium. The pupils are equally round and reactive. Extraocular movements are intact. Nose and throat are slightly dry. NECK: Supple, without mass, nodes or bruits. CHEST: Clear to auscultation. No rales, rhonchi or wheezes are heard. CARDIOVASCULAR: Heart reveals a regular rate and rhythm without murmurs, gallops or rubs. ABDOMEN: Soft and nontender, without organomegaly. Normal bowel sounds are noted. No rebound or g uarding is noted. GENITOURINARY: Deferred. EXTREMITIES: Reveal left leg with some erythema, which is pretty much gone. The patient has trace edema in that leg today. The patient also has a left foot drop and we will get an AFO for her. IMPRESSION: 1. Urinary tract infection responding well to IV antibiotics. 2. Hypertension, stable. 3. Hyperlipidemia. 4. Hypothyroidism. 5. Rhabdomyolysis, which is resolved. 6. Dehydration. The patient has moved her IV to a saline lock and she needs to be encouraged to dr ink a little more liquids. 7. History of breast cancer greater than 30 years ago. PLAN: 1. We will continue Ancef for a full 10 days. 2. Continue physical therapy and occupational therapy. 3. Continue deep venous thrombosis and stress ulcer prophylaxis. 4. Continue to encourage the patient to eat. 5. Continue home Lasix and potassium at this time. 6. Continue to follow electrolytes. 7. Continue to work with physical therapy and occupational therapy, so she can become independent a nd go back home. 8. The patient is actually getting better. I expected her to go home sometimes next week.
--- NOTE | 2016-11-25 14:43 | PRG ---
DATE OF SERVICE: 11/24/2016 DATE OF ADMISSION: 11/22/2016 HISTORY OF PRESENT ILLNESS: The patient is a 81-year-old white female seen in the emergency room at [facility] after falling and staying there for several hours. She was evaluated and found t o have some rhabdomyolysis with renal insufficiency and urinary tract infection. She was admitted t o the hospital and started on IV Ancef. She eventually was stabilized and transferred to swing bed for continued physical therapy, occupational therapy, and IV Ancef. Patient is not very happy this evening, she thinks she feels like she is in fdc that the therapy pe tseringe want her to do things in their way and she wants to go home for a day and come back to finish t herapy. We would had a long discussion and she finally decided that it would be best to stay here f or the night and continue physical therapy tomorrow. She has no other complaints. PHYSICAL EXAMINATION: VITAL SIGNS: Reveal blood pressure this morning 143/73, pulse 94-98, respirations 18-20, O2 sat 94- 98, pulse 85-119 when she is upset, T-max 98.9. PHYSICAL EXAMINATION: GENERAL: This is a well-developed, well-nourished, very pleasant white female who is somewhat onery and does not want to be in the hospital, although she did agree to do physical therapy. HEENT: Reveals normocephalic, nontraumatic cranium. Pupils are equally round and reactive. Extrao cular movements intact. Nose and throat are slightly dry. NECK: Supple, without masses, nodes, or bruits. CHEST: Clear to auscultation. No rales, rhonchi, or wheezes are heard. Breath sounds are very dis tant. CARDIOVASCULAR: Heart reveals a regular rate and rhythm without murmurs, gallops, or rubs. ABDOMEN: Soft, nontender, without organomegaly. Somewhat scaphoid, no rebound or guarding is noted . Bowel sounds are heard in all 4 quadrants. : Deferred. EXTREMITIES: Reveal some left foot drop. She most likely has an AFO. Still has some trace edema i n her both legs, but is much improved. IMPRESSION: 1. Urinary tract infection responding well to IV Ancef. 2. Hypertension, stable. 3. Hyperlipidemia. 4. Hypothyroidism. 5. Rhabdomyolysis, resolved. 6. Dehydration, improved. 7. History of breast cancer. 8. Generalized weakness with poor balance. PLAN: 1. Continue Ancef 1 gram IV q.8 hours. 2. Continue PT. 3. Continue occupational therapy. 4. Continue present medications. 5. IV to saline lock. 6. Continue present medications. 7. Labs tomorrow morning. 8. We had a very long discussion. Spent greater than 30 minutes on rationalizing physical therapy and occupational therapy.
[2016-11-25] MEDS: OLANZapine 5 MG TAB PO SCH ×2 (19:20→20:14)
[2016-11-25] MEDS: Oxybutynin Chloride 5 MG TAB PO SCH (20:14)
[2016-11-25] MEDS: Temazepam 15 MG CAP PO SCH (20:14)
[2016-11-26] MEDS ORDERED: Sodium Chloride 0.9% 10 ML ONE ×3 (05:19→21:43)
[2016-11-26] MEDS: Levothyroxine Sodium 75 MCG TAB PO SCH (05:24)
[2016-11-26] MEDS: Saccharomyces boulardii 250 MG CAP PO SCH (08:43)
[2016-11-26] MEDS: Famotidine 20 MG TAB PO SCH ×2 (08:43→20:09)
[2016-11-26] MEDS: Carvedilol 6.25 MG TAB PO SCH ×2 (08:43→20:09)
[2016-11-26] MEDS: Potassium Chloride 8 MEQ TAB PO SCH (08:43)
[2016-11-26] MEDS: OLANZapine 5 MG TAB PO SCH (20:09)
[2016-11-26] MEDS: Temazepam 15 MG CAP PO SCH (20:10)
[2016-11-26] MEDS: Oxybutynin Chloride 5 MG TAB PO SCH (20:10)
[2016-11-27] MEDS ORDERED: Sodium Chloride 0.9% 10 ML ONE ×3 (05:40→20:29)
[2016-11-27] MEDS: Levothyroxine Sodium 75 MCG TAB PO SCH (06:24)
[2016-11-27] MEDS: Famotidine 20 MG TAB PO SCH ×2 (08:14→20:32)
[2016-11-27] MEDS: Saccharomyces boulardii 250 MG CAP PO SCH (08:14)
[2016-11-27] MEDS: Carvedilol 6.25 MG TAB PO SCH ×2 (08:14→20:32)
[2016-11-27] MEDS: Potassium Chloride 8 MEQ TAB PO SCH (08:14)
[2016-11-27] MEDS ORDERED: Venlafaxine HCl XR 75 MG CAP PO SCH (10:00)
--- NOTE | 2016-11-27 10:54 | PRG ---
DATE OF SERVICE: 11/26/2016 SUBJECTIVE: Ms. Boyd is doing well. Denies any complaints, resting comfortably, tolerating her the rapy. Discussed with nursing and no concerns. OBJECTIVE: VITAL SIGNS: She is afebrile, heart rate is 100, respiratory rate is 20, oxygen saturation 96%, blo od pressure 147/69. CARDIOVASCULAR: S1, S2 plus. RESPIRATORY: Normal vesicular breath sounds. ABDOMEN: Soft, nontender, bowel sounds heard in all quadrants. EXTREMITIES: Without cyanosis or clubbing. LABORATORY DATA: Blood sugar is 170. TSH is 5.3844. IMPRESSION: 1. Resolving urinary tract infection. 2. Hypertension. 3. Dyslipidemia. 4. Hypothyroidism. 5. Resolved dehydration. 6. Resolved rhabdomyolysis. 7. Improving deconditioning. PLAN: 1. Continue antibiotics. 2. Nutritional support. 3. Deep venous thrombosis and stress ulcer prophylaxis. 4. Encourage p.o. fluid intake. 5. Physical therapy. 6. Discussed with patient and spouse in detail and all questions answered.
--- NOTE | 2016-11-27 18:57 | PRG ---
DATE OF SERVICE: 11/27/2016 SUBJECTIVE: Ms. Boyd is resting comfortably. Denies any complaints. She is tolerating her therapy and her antibiotics. OBJECTIVE: VITAL SIGNS: She is afebrile, heart rate is 91, respirations are 20, oxygen saturation is 97%, and blood pressure was 147/69. CARDIOVASCULAR SYSTEM: S1, S2 plus. RESPIRATORY SYSTEM: Normal vesicular breath sounds. ABDOMEN: Soft, nontender, bowel sounds heard in all quadrants. EXTREMITIES: Without cyanosis or clubbing. She is concerned about not being on her Effexor. This apparently was missed when she was moved from acute to swing. IMPRESSION: 1. Urinary tract infection. 2. Improving deconditioning. 3. Depression. 4. Hypertension. 5. Dyslipidemia. 6. Hypothyroidism. PLAN: 1. Resume Effexor XR 150 mg p.o. daily. 2. Continue Ancef. 3. Nutritional support. 4. Physical Therapy. 5. DVT and stress ulcer prophylaxis. 6. Decubitus precautions. [facility]
[2016-11-27] MEDS: OLANZapine 5 MG TAB PO SCH (20:32)
[2016-11-27] MEDS: Temazepam 15 MG CAP PO SCH (20:33)
[2016-11-27] MEDS: traMADol HCl 50 MG TAB PO PRN (20:33)
[2016-11-27] MEDS: Oxybutynin Chloride 5 MG TAB PO SCH (21:26)
[2016-11-28] MEDS: Levothyroxine Sodium 75 MCG TAB PO SCH (05:26)
[2016-11-28] MEDS: Carvedilol 6.25 MG TAB PO SCH ×2 (09:09→20:48)
[2016-11-28] MEDS: Famotidine 20 MG TAB PO SCH ×2 (09:10→20:48)
[2016-11-28] MEDS: Saccharomyces boulardii 250 MG CAP PO SCH (09:11)
[2016-11-28] MEDS: traMADol HCl 50 MG TAB PO PRN (09:11)
[2016-11-28] MEDS: Acetaminophen 325 MG TAB PO PRN (09:11)
[2016-11-28] MEDS: Venlafaxine HCl XR 75 MG CAP PO SCH (09:11)
[2016-11-28] MEDS: Potassium Chloride 8 MEQ TAB PO SCH (09:11)
--- NOTE | 2016-11-28 14:03 | PRG ---
DATE OF SERVICE: 11/28/2016 HISTORY OF PRESENT ILLNESS: Ms. Boyd is a 81-year-old white female that fell and had rhabdomyolysis . She was brought to the emergency room and found to have renal insufficiency and urinary tract inf ection. She was started on cefazolin 1 gram q.8 h. and finishes tonight at 2200 hours. She was admitted to the hospital and had significant weakness. She was transferred to a swing bed f or physical therapy and occupational therapy. The patient is doing much better. She states she is getting stronger. She is able to get up off of her bed and out of her chair much better. She still has some difficulty with balance, but that is much improved. She has no complaints today. PHYSICAL EXAMINATION: VITAL SIGNS: Today reveal a blood pressure this morning was 115/58, pulse 79-94, respirations 18, O 2 sat 93-98%, temperature max is 98.5. GENERAL: This is a well-developed, well-nourished, very pleasant white female who is in a much bett er mood today. Apparently her venlafaxine was not restarted from the hospital to the swing bed. It was restarted by Dr. Najera over the weekend. She is doing much better. HEENT: Reveals normocephalic, nontraumatic cranium. Pupils are equally round and reactive. Extrao cular movements intact. Nose and throat are slightly dry. NECK: Supple, without masses, nodes or bruits. LUNGS: Chest clear to auscultation. No rales, rhonchi or wheezes are heard. CARDIOVASCULAR: Reveals a regular rate and rhythm without murmurs, gallops or rubs. ABDOMEN: Soft, nontender, without organomegaly, normal bowel sounds are noted. No rebound or guard ing is noted. GENITOURINARY: Deferred. EXTREMITIES: Reveal no clubbing, cyanosis or edema. Left foot is much improved. She still has lef t foot drop which is improving. We may need to get her AFO. IMPRESSION: 1. Urinary tract infection, finishes a 10-day antibiotic course this evening. 2. Hypertension. 3. Hyperlipidemia. 4. Hypothyroidism. 5. Rhabdomyolysis which has resolved. 6. Dehydration, much improved. 7. History of breast cancer greater than 30 years ago. PLAN: 1. Continue present medications until tonight at 10:00 and then finish. 2. Continue physical therapy and occupational therapy. 3. We will continue DVT and stress ulcer prophylaxis. 4. Continue to encourage the patient to eat. 5. Continue Lasix and potassium. 6. Continue to follow electrolytes. 7. Continue and stress the importance of her participating in physical therapy and occupational the rapy and hopefully, she will be home sometimes at the end of the week.
[2016-11-28] MEDS: Oxybutynin Chloride 5 MG TAB PO SCH (20:48)
[2016-11-28] MEDS: OLANZapine 5 MG TAB PO SCH (20:48)
[2016-11-28] MEDS: Temazepam 15 MG CAP PO SCH (20:49)
[2016-11-29] MEDS ORDERED: Sodium Chloride 0.9% 10 ML ONE (06:03)
[2016-11-29] MEDS: Levothyroxine Sodium 75 MCG TAB PO SCH (06:04)
[2016-11-29] MEDS: Carvedilol 6.25 MG TAB PO SCH ×2 (08:41→20:21)
[2016-11-29] MEDS: Potassium Chloride 8 MEQ TAB PO SCH (08:41)
[2016-11-29] MEDS: Venlafaxine HCl XR 75 MG CAP PO SCH (08:41)
[2016-11-29] MEDS: Acetaminophen 325 MG TAB PO PRN (08:42)
[2016-11-29] MEDS: Famotidine 20 MG TAB PO SCH ×2 (08:42→20:22)
[2016-11-29] MEDS: traMADol HCl 50 MG TAB PO PRN ×2 (08:42→20:23)
[2016-11-29] MEDS: Saccharomyces boulardii 250 MG CAP PO SCH (08:42)
--- NOTE | 2016-11-29 14:21 | PRG ---
DATE OF SERVICE: 11/29/2016 HISTORY OF PRESENT ILLNESS: The patient is a very pleasant 81-year-old white female that was nathaniel t to the emergency room after she fell and laid down the floor for several hours. She had some rhab domyolysis. She had renal insufficiency. She had urinary tract infection. She was started on IV a ntibiotics and finished those last night at 2 o' clock p.m. Patient initially was admitted to the hospital and then transferred to swing bed for physical therap y and occupational therapy. She is found walking in the crowder today, much slower than usual what she has made one round and has w orking on her second round. She is slowly getting better. Her bowel is still significantly lacking , but she is getting better. She walks and then stops for a second and continues to walk. She has slightly noticeable foot drop. PHYSICAL EXAMINATION: VITAL SIGNS: Today reveal blood pressure this morning is 120/60, pulse 85-90, respirations 17-20, a nd O2 saturation 96% to 97%, temperature max 97.0. GENERAL: This is a well-developed, well-nourished, thin white female in no apparent distress at thi s time. She is walking and little bit and getting stronger. She has no complaints. HEENT: Reveals normocephalic, nontraumatic cranium. Pupils are equally round and reactive. Extrao cular movements intact. Nose and throat are slightly dry. NECK: Supple, without masses, nodes or bruits. CHEST: Clear to auscultation. No rales, rhonchi or wheezes are heard. CARDIOVASCULAR: Reveals a regular rate and rhythm without murmurs, gallops or rubs. ABDOMEN: Still soft, nontender, without organomegaly, normal bowel sounds are noted. No rebound or guarding is noted. : Deferred. EXTREMITY: Reveals no clubbing, cyanosis or edema. The patient is walking in the crowder today. She is very slow, but her foot drop is slightly improved. We may evaluate her and try an AFO. IMPRESSION: 1. Urinary tract infection. The patient finished her 10-day antibiotic course last night. 2. Hypertension. 3. Hyperlipidemia. 4. Hypothyroidism. 5. Rhabdomyolysis, which is resolved. 6. Dehydration, much improved. 7. History of breast cancer greater than 30 years ago. PLAN: 1. Finish antibiotics last night at 2200 hours. 2. Continue physical therapy and occupational therapy next week. 3. Continue DVT and stress ulcer prophylaxis. 4. Continue Lasix and potassium. 5. Continue to follow electrolytes. 6. Continue to stress importance of her eating well and participating in physical therapy and occup ational therapy, which she is much improved.
[2016-11-29] MEDS: OLANZapine 5 MG TAB PO SCH (20:22)
[2016-11-29] MEDS: Oxybutynin Chloride 5 MG TAB PO SCH (20:22)
[2016-11-29] MEDS: Temazepam 15 MG CAP PO SCH (20:22)
[2016-11-30] MEDS: Levothyroxine Sodium 75 MCG TAB PO SCH (06:13)
[2016-11-30] MEDS: Carvedilol 6.25 MG TAB PO SCH ×2 (08:14→19:55)
[2016-11-30] MEDS: Saccharomyces boulardii 250 MG CAP PO SCH (08:15)
[2016-11-30] MEDS: Famotidine 20 MG TAB PO SCH ×2 (08:15→19:56)
[2016-11-30] MEDS: Potassium Chloride 8 MEQ TAB PO SCH (08:15)
[2016-11-30] MEDS: Venlafaxine HCl XR 75 MG CAP PO SCH (08:15)
[2016-11-30] MEDS: Oxybutynin Chloride 5 MG TAB PO SCH (19:56)
[2016-11-30] MEDS: Temazepam 15 MG CAP PO SCH (19:56)
[2016-11-30] MEDS: OLANZapine 5 MG TAB PO SCH (19:56)
[2016-11-30] MEDS: traMADol HCl 50 MG TAB PO PRN (19:57)
--- NOTE | 2016-12-01 03:05 | PRG ---
DATE OF SERVICE: 11/30/2016 SUBJECTIVE: Ms. Boyd is a very pleasant 81-year-old white female brought to the emergency room afte r she fell and laid on the floor for several hours. She developed some rhabdomyolysis, was seen in the emergency room and found to have some renal insufficiency, dehydration and a urinary tract infec tion. The patient was eventually started on some IV antibiotics, was transferred to the hospital for physi michaela therapy, occupational therapy, IV antibiotics, and for rehydration. The patient stabilized and was transferred to swing bed for continued physical therapy and occupatio nal therapy. She presently is in a swing bed and is actually is much improved with her physical therapy and occup ational therapy. The patient states she is doing very well. She is happy, she is eating better. She is getting stro nger. She is walking. Her balance is still poor, but improving. She still tends to fall backwards . VITAL SIGNS: Vital signs reveal blood pressure is 120/78, pulse 88-98, respirations 18-20, O2 sat 9 5-97%, temperature max is 97.5. PHYSICAL EXAMINATION: GENERAL: This is a well-developed, well-nourished, very pleasant, thin white female in no apparent distress at this time. HEENT: Reveals normocephalic, nontraumatic cranium. Pupils are equally round and reactive. Extrao cular movements intact. Nose and throat are slightly dry. NECK: Supple, without masses, nodes or bruits. CHEST: Clear to auscultation. No rales, no rhonchi, no wheezes. No cough is heard. HEART: Heart reveals a regular rate and rhythm without murmurs, gallops or rubs. ABDOMEN: Soft, nontender, without organomegaly, slightly protuberant, normal bowel sounds are noted . No rebound or guarding is noted. GENITOURINARY: Deferred. EXTREMITIES: Reveal no clubbing, cyanosis or edema, just extreme weakness. The patient is walking. She has slight left foot drop, but seems to be improving. They may try an AFO. IMPRESSION: 1. Urinary tract infection, resolved, finished antibiotic. 2. Hypertension. 3. Hyperlipidemia. 4. Dehydration, resolved. 5. Hypothyroidism. 6. Rhabdomyolysis, resolved. 7. Generalized weakness. 8. Unstable balance. PLAN: 1. Continue physical therapy and occupational therapy. 2. Continue Lasix and potassium. 3. Continue present medications. 4. Continue to follow electrolytes. 5. Continue DVT and stress ulcer prophylaxis. 6. Continue to encourage the patient to eat. 7. Continue decubitus precautions.
[2016-12-01] MEDS: Levothyroxine Sodium 75 MCG TAB PO SCH (05:48)
[2016-12-01] MEDS: Carvedilol 6.25 MG TAB PO SCH ×2 (08:42→20:36)
[2016-12-01] MEDS: Potassium Chloride 8 MEQ TAB PO SCH (08:42)
[2016-12-01] MEDS: Famotidine 20 MG TAB PO SCH ×2 (08:42→20:35)
[2016-12-01] MEDS: Venlafaxine HCl XR 75 MG CAP PO SCH (08:43)
[2016-12-01] MEDS: Saccharomyces boulardii 250 MG CAP PO SCH (08:43)
--- NOTE | 2016-12-01 10:58 | PRG ---
DATE OF ADMISSION: 11/22/2016 DATE OF PROGRESS NOTE: 12/01/2016 HISTORY OF PRESENT ILLNESS: Ms. Boyd is a very pleasant 81-year-old white [facility] she fell down and was unable to get up. She laid down the floor for several hours , had some mild rhabdomyolysis and dehydration. She also has some mild renal insufficiency. She wa s eventually brought to the emergency room and found to be dehydrated and had urinary tract infectio n. She was started on IV antibiotics and transferred to the hospital for acute care. Patient was extremely weak and was transferred to swing bed for physical therapy, occupational thera py, and finishing her IV antibiotics, which has been done. She is doing much better. She has no co mplaints today. The patient had a significant discussion with physical therapy, both physical therapists said that t he patient is much improved, but she is still very weak and she still has significant problems with balance, especially going backwards. She also has some cognitive deficits and this is impulsive at times, which gets her in trouble. She is slowly improving. Other recommendation was continued with physical therapy for another several days rather let her go home tomorrow. We will do that. I did have a discussion with her and she is agreed to continue physical therapy and occupational the rapy. OBJECTIVE: Vital signs this morning reveal blood pressure 95/57, pulse 83-98, respirations 18-20, O 2 sat 94-97%, temperature max is 97.7. PHYSICAL EXAMINATION: GENERAL: This is a well-developed, well-nourished, thin white female in no apparent distress at thi s time. HEENT: Reveals normocephalic, nontraumatic cranium. Pupils are equally round and reactive. Extrao cular movements intact. Nose and throat are slightly dry. NECK: Supple, without masses, nodes, or bruits. CHEST: Clear to auscultation. Patient states she sometimes has problems with food hanging up. We will most likely evaluate that later on, but she does have a history of long ago esophageal strictur e. HEART: Reveals regular rate and rhythm without murmurs, gallops or rubs. ABDOMEN: Soft, nontender, without organomegaly, normal bowel sounds are noted. No rebound or guard ing is noted. : Deferred. EXTREMITIES: Reveal still weakness, but much improved. She still has a slight left drop and she co ntinues to fall backwards. IMPRESSION: 1. Urinary tract infection, resolved finished antibiotics. 2. Hypertension. 3. Generalized weakness. 4. Balance problems with mainly falling backwards. 5. Hyperlipidemia. 6. Dehydration. 7. Hypothyroidism. 8. Rhabdomyolysis, resolved. 9. Generalized weakness. 10. Unstable bowels. PLAN: 1. Continue physical therapy and occupational therapy. 2. I have talked to physical therapy and occupational therapy about trying the using the ga it belt and helping his walk. 3. Continue Lasix and potassium. 4. Continue present meds. 5. Continue follow electrolytes. 6. Continue deep venous thrombosis and stress ulcer prophylaxis. 7. Continue to encourage patient to eat. 8. Continue to keep his precautions.
[2016-12-01] MEDS: PROVENTIL INHALER 6.7 G (200 INHALATIONS) INH PRN (19:40)
[2016-12-01] MEDS: OLANZapine 5 MG TAB PO SCH (20:36)
[2016-12-01] MEDS: Temazepam 15 MG CAP PO SCH (20:36)
[2016-12-01] MEDS: Oxybutynin Chloride 5 MG TAB PO SCH (20:36)
[2016-12-02] MEDS: Levothyroxine Sodium 75 MCG TAB PO SCH (05:37)
[2016-12-02 05:38] LABS: #Basophils 0.1 thou/uL (0.0-0.2); #Lymphocytes 1.1 thou/uL (1.20-3.40); #Monocytes 0.5 thou/uL (0.11-0.59); #Neutrophils 4.2 thou/uL (1.40-6.50); %Basophils 1.2 % (0.0-1.0); %Eosinophils 0.2 % (0.0-10.0); %Lymphocytes 18.7 % (21.0-51.0); %Monocytes 8.9 % (0.0-10.0); Hemoglobin 9.7 g/dL (12.0-16.0); Mean Corpuscular HGB CONC 32.4 g/dL (32.0-36.0); Mean Corpuscular Hemoglobin 29.2 pg (27.0-31.0); Mean Corpuscular Volume 90.2 fl (81.0-99.0); Mean Platelet Volume 8.3 fL (7.4-10.4); Platelet Count 205 thou/uL (130-400); RBC Distribution Width 13.8 % (11.5-14.5); Red Blood Cell (RBC) Count 3.31 mill/uL (4.20-5.40)
[2016-12-02 05:48] LABS: AST (SGOT) 12 U/L (5-34); Alkaline Phosphatase 79 U/L (40-150); Anion Gap 12 mmol/L (10-20); BUN (Urea Nitrogen) 20 mg/dL (9.8-20.1); Bilirubin, Total 0.5 mg/dL (0.2-1.2); Calc. Creatinine Clearance 49 mL/min (70-130); Calcium 8.7 mg/dL (7.8-10.44); Carbon Dioxide 22 mmol/L (23-31); Chloride 110 mmol/L (98-107); Estimated GFR-MDRD 52; Globulin 2.5 g/dL (2.4-3.5); Glucose 131 mg/dL (83-110); Potassium 4.2 mmol/L (3.5-5.1); Protein, Total 5.5 g/dL (5.8-8.1); Sodium 140 mmol/L (136-145)
[2016-12-02] MEDS: PROVENTIL INHALER 6.7 G (200 INHALATIONS) INH PRN ×2 (06:07→20:13)
[2016-12-02 06:54] LABS: ALT (SGPT) 7 U/L (8-55)
[2016-12-02] MEDS: Carvedilol 6.25 MG TAB PO SCH ×2 (08:26→20:18)
[2016-12-02] MEDS: Saccharomyces boulardii 250 MG CAP PO SCH (08:26)
[2016-12-02] MEDS: Potassium Chloride 8 MEQ TAB PO SCH (08:26)
[2016-12-02] MEDS: Acetaminophen 325 MG TAB PO PRN (08:27)
[2016-12-02] MEDS: Venlafaxine HCl XR 75 MG CAP PO SCH (08:27)
[2016-12-02] MEDS: Famotidine 20 MG TAB PO SCH ×2 (08:27→20:19)
[2016-12-02] MEDS: traMADol HCl 50 MG TAB PO PRN (08:28)
[2016-12-02] MEDS ORDERED: Milk Of Magnesia 30 ML UDCUP PO PRN (14:33)
--- NOTE | 2016-12-02 16:00 | PRG ---
DATE OF ADMISSION: 11/22/2016 DATE OF PROGRESS NOTE: 12/02/2016 Ms. Boyd is a very pleasant 81-year-old white female brought to the emergency room after she fell do wn, was unable to get up. She laid in the floor and has some rhabdomyolysis. She was dehydrated an d was brought to the emergency room eventually. She had a urinary tract infection along with dehydr ation and started on IV antibiotics and transferred to the hospital for acute care. Patient was extremely weak and eventually transferred to swing bed command. Patient has been actual ly slowly improving with physical therapy and occupational therapy, but was not get up to go home. She has significant balance problems and tends to fall backwards. She states she feels somewhat bet ter today. She is still little bit tired, but is doing better. She states she did not have any epi sodes of falling backwards today: PHYSICAL EXAMINATION: VITAL SIGNS: Today, reveal blood pressure is 116/69, pulse 81-90, respirations 18-20, O2 sat 97-100 %, temperature 96.4. GENERAL: This is a well-developed, well-nourished, very pleasant, thin white female in no apparent distress at this time. HEENT: Reveals normocephalic, nontraumatic cranium. Pupils are equally round and reactive. Extrao cular movements intact. Nose and throat are slightly dry. NECK: Supple, without masses, nodes or bruits. CHEST: Clear to auscultation. No rales, rhonchi or wheezes are heard. HEART: Reveals a regular rate and rhythm without murmurs, gallops or rubs. ABDOMEN: Soft, nontender, without organomegaly, normal bowel sounds are noted. No rebound or guard ing is noted. : Deferred. EXTREMITIES: Reveal no clubbing, cyanosis or edema. NEUROLOGIC: She continues to have balance problems and she has a slight left foot drop. She contin ues to fall backwards. IMPRESSION: 1. Urinary tract infection, resolved with antibiotics. 2. Generalized weakness. 3. Hypertension. 4. Balance problems with mainly falling backwards. 5. Hyperlipidemia. 6. Dehydration. 7. Hypothyroidism. 8. Rhabdomyolysis, which resolved. 9. Unstable bowels. I did have a family meeting with the patient and her . was very upset because he thi nks he does not want to be here for physical therapy. He thinks that she has some type of brain camille or or stroke or something like that and that is why she is just having generalized weakness and that this has been going on for a long time and he wants her home, he does not want to here at the [facility]. I did significant calcium with him or hers stating that we could get a Neurology consult for alfredo patel evaluation, which we will do when she gets out of the hospital. She has already had a Neuros urgery consult with Dr. Dudley and he said that there was nothing to do, but the patient's wa s not happy with him and said well he did not really do anything and did not have anything to offer us. PLAN: 1. Continue physical therapy and occupational therapy. 2. Consult Neurology for followup outside of the hospital. 3. Continue to walk the patient over the weekend with a gait belt. 4. Continue Lasix and potassium. 5. Continue present. 6. Continue to follow electrolytes. No labs were done today, which were very good except for low a lbumin. 7. Continue deep venous thrombosis and stress ulcer prophylaxis. 8. Continue to encourage patient. 9. Continue decubitus precautions.
[2016-12-02] MEDS: OLANZapine 5 MG TAB PO SCH (19:48)
[2016-12-02] MEDS: Oxybutynin Chloride 5 MG TAB PO SCH (20:19)
[2016-12-02] MEDS: Temazepam 15 MG CAP PO SCH (20:19)
[2016-12-03] MEDS: Levothyroxine Sodium 75 MCG TAB PO SCH (05:35)
[2016-12-03] MEDS: Venlafaxine HCl XR 75 MG CAP PO SCH (08:08)
[2016-12-03] MEDS: Saccharomyces boulardii 250 MG CAP PO SCH (08:08)
[2016-12-03] MEDS: Carvedilol 6.25 MG TAB PO SCH ×2 (08:09→20:46)
[2016-12-03] MEDS: Acetaminophen 325 MG TAB PO PRN (08:09)
[2016-12-03] MEDS: Famotidine 20 MG TAB PO SCH ×2 (08:09→20:46)
[2016-12-03] MEDS: Potassium Chloride 8 MEQ TAB PO SCH (08:09)
[2016-12-03] MEDS: traMADol HCl 50 MG TAB PO PRN (08:10)
[2016-12-03] MEDS: Polyethylene Glycol 3350 17 GM Packet PO SCH (08:20)
[2016-12-03] MEDS ORDERED: Bisacodyl 10 MG SUPP PR PRN (08:41)
--- NOTE | 2016-12-03 11:21 | PRG ---
DATE OF SERVICE: 12/03/2016 DATE OF ADMISSION: 11/22/2016 SUBJECTIVE: Ms. Boyd is a very pleasant 81-year-old white female brought to the emergency room afte r she was found on the floor. Apparently she had fallen and laid there for a few hours. She was de hydrated and had some early rhabdomyolysis. She was admitted to the hospital and found to have urin glenn tract infection and started on IV antibiotics and transferred from Acute Care to swing bed. The patient was extremely weak and unable to initially walk. She was started on Physical Therapy and O ccupational Therapy and is doing much better. She continues to have some balance problems and tends to fall backwards. She states she feels much better because she slept well last night. She ate of her breakfast. OBJECTIVE: VITAL SIGNS: Today reveal blood pressure is 106/56, pulse 76-91, respirations 18-20, O2 sat 93%-96% on room air, temperature max is 97.9. GENERAL: This is a well-developed, well-nourished, very pleasant white female in no apparent distre ss at this time. HEENT: Reveals normocephalic, nontraumatic cranium. Pupils are equally round and reactive. Extrao cular movements intact. Nose and throat are slightly dry. NECK: Supple, without masses, nodes or bruits. CHEST: Clear to auscultation. No rales, no rhonchi, no wheezes are heard. HEART: Reveals a regular rate and rhythm without murmurs, gallops or rubs. ABDOMEN: Soft, nontender, without organomegaly, normal bowel sounds are noted. No rebound or guard ing is noted. Patient does states that she thinks she is constipated and has not had a bowel moveme nt in the last 7 days. She was started on MiraLAX yesterday. : Exam is deferred. EXTREMITIES: Reveal no clubbing, cyanosis or edema. NEUROLOGIC: She seems to be doing better. She still has a slight left footdrop and continues to webb ve some instability, mainly falling backwards. ASSESSMENT: 1. Urinary tract infection, resolved with antibiotics. 2. Generalized weakness. 3. Hypertension. 4. Balance problems mainly falling backwards. 5. Hyperlipidemia. 6. Dehydration, much improved. 7. Hypothyroidism. 8. Rhabdomyolysis, resolved. 9. Constipation. PLAN: 1. We will give her a Dulcolax rectal suppository this morning. 2. She had MiraLAX this morning. 3. She had a Milk of magnesia last night. 4. Continue Physical Therapy and Occupational Therapy. 5. Consult Neurology for followup on an outpatient. 6. Continue to walk patient twice a day with a gait belt this morning and this afternoon. 7. Continue Lasix and potassium. 8. Continue present medications. 9. Continue to follow electrolytes. 10. Continue DVT and stress ulcer prophylaxis. 11. Continue decubitus precautions.
[2016-12-03] MEDS: OLANZapine 5 MG TAB PO SCH (20:47)
[2016-12-03] MEDS: Temazepam 15 MG CAP PO SCH (20:47)
[2016-12-03] MEDS: Oxybutynin Chloride 5 MG TAB PO SCH (20:47)
[2016-12-04] MEDS: Levothyroxine Sodium 75 MCG TAB PO SCH ×2 (06:00→18:33)
[2016-12-04 06:10] LABS: Anion Gap 13 mmol/L (10-20); BUN (Urea Nitrogen) 20 mg/dL (9.8-20.1); Calc. Creatinine Clearance 50 mL/min (70-130); Calcium 8.4 mg/dL (7.8-10.44); Carbon Dioxide 21 mmol/L (23-31); Chloride 108 mmol/L (98-107); Estimated GFR-MDRD 53; Glucose 112 mg/dL (83-110); Sodium 138 mmol/L (136-145)
[2016-12-04] MEDS: Saccharomyces boulardii 250 MG CAP PO SCH (08:34)
[2016-12-04] MEDS: Polyethylene Glycol 3350 17 GM Packet PO SCH (08:34)
[2016-12-04] MEDS: Potassium Chloride 8 MEQ TAB PO SCH (08:34)
[2016-12-04] MEDS: Carvedilol 6.25 MG TAB PO SCH ×2 (08:35→20:00)
[2016-12-04] MEDS: Venlafaxine HCl XR 75 MG CAP PO SCH (08:35)
[2016-12-04] MEDS: Acetaminophen 325 MG TAB PO PRN (08:35)
[2016-12-04] MEDS: Famotidine 20 MG TAB PO SCH ×2 (08:35→20:00)
[2016-12-04] MEDS: traMADol HCl 50 MG TAB PO PRN (08:36)
--- NOTE | 2016-12-04 12:40 | PRG ---
DATE OF SERVICE: 12/04/2016 SUBJECTIVE: Ms. Boyd is a very pleasant 81-year-old white female brought to the emergency room afte r she was found on the floor. Apparently, she had fallen making up her bed and laid there for sever al hours. She was dehydrated and had some early rhabdomyolysis. She was admitted to the hospital a nd found to have a urinary tract infection and was started on IV antibiotics. She eventually was st abilized and transferred to swing bed, so she could continue with physical therapy and occupational therapy. It is noted that she continues to have generalized weakness, walking short steps with sign ificant balance problems, especially falling backwards. The patient states she has no complaints today. She is feeling much better, but she understands felix t she is eating poorly. I did point out that her prealbumin was 5 and that we really need to increa se her appetite and increase her oral intake or she would end up at the retirement. OBJECTIVE: VITAL SIGNS: This morning reveal blood pressure 123/68, pulse 84, respirations 20, O2 saturation 97 %, temperature max is 97.5. GENERAL: This is a well-developed, well-nourished, very pleasant white female in no apparent distre ss at this time. HEENT: Reveals normocephalic, nontraumatic cranium. Pupils are equally round and reactive. Extrao cular movements intact. Nose and throat are slightly dry. NECK: Supple, without masses, nodes or bruits. CHEST: Clear to auscultation. No rales, rhonchi or wheezes are heard. CARDIOVASCULAR: Reveals a regular rate and rhythm without murmurs, gallops or rubs. ABDOMEN: Soft, nontender, without organomegaly, normal bowel sounds are noted. No rebound or guard ing is noted. : Deferred. EXTREMITIES: Reveal no clubbing, cyanosis, or edema, just generalized weakness. NEUROLOGIC: The patient still has slight left foot drop and has some instability, mainly falling ba ckwards. ASSESSMENT: 1. Urinary tract infection, resolved. 2. Generalized weakness. 3. Hypertension. 4. Balance problems mainly falling backwards. 5. Hyperlipidemia. 6. Dehydration, resolved. 7. Hypothyroidism. 8. Rhabdomyolysis. 9. Malnutrition. 10. Constipation. PLAN: 1. Continue to encourage the patient to eat much better. 2. Continue supplements, nutritional supplements. 3. Continue physical therapy and occupational therapy. 4. We will consult Neurology outpatient for further evaluation. 5. Continue with walking the patient this weekend twice a day with a gait belt. 6. Continue Lasix, potassium. 7. Continue present other medication. 8. Continue follow electrolytes. 9. Continue DVT and stress ulcer prophylaxis. 10. Continue decubitus precautions.
[2016-12-04] MEDS: OLANZapine 5 MG TAB PO SCH (20:00)
[2016-12-04] MEDS: Oxybutynin Chloride 5 MG TAB PO SCH (20:00)
[2016-12-04] MEDS: Temazepam 15 MG CAP PO SCH (20:00)
[2016-12-05] MEDS: Levothyroxine Sodium 75 MCG TAB PO SCH (05:46)
[2016-12-05] MEDS: Saccharomyces boulardii 250 MG CAP PO SCH (08:12)
[2016-12-05] MEDS: Famotidine 20 MG TAB PO SCH ×2 (08:12→20:33)
[2016-12-05] MEDS: Polyethylene Glycol 3350 17 GM Packet PO SCH (08:12)
[2016-12-05] MEDS: Potassium Chloride 8 MEQ TAB PO SCH (08:12)
[2016-12-05] MEDS: Carvedilol 6.25 MG TAB PO SCH ×2 (08:12→20:33)
[2016-12-05] MEDS: Venlafaxine HCl XR 75 MG CAP PO SCH (08:13)
--- NOTE | 2016-12-05 10:37 | PRG ---
DATE OF SERVICE: 12/05/2016 HISTORY OF PRESENT ILLNESS: Ms. Boyd is a very pleasant 81-year-old white female brought to the [facility] room after she was found on the floor after tripping. She laid there for several hours becau se she could not get up and became dehydrated and had some early rhabdomyolysis. She was admitted to the hospital and had a urinary tract infection, started on IV antibiotics. She was transferred t o swing bed for continued physical therapy and occupational therapy and balance therapy. The patient is actually doing better, but she still has some problems falling backwards. Her husban d is frustrated and ready to take her home. We will schedule her home Monday afternoon after the rapy. The patient states she has no complaints today. The patient was eating better yesterday, she had 75% of breakfast, no lunch, but she states her husb and brought her some lunch, she ate 90% of supper. VITAL SIGNS: This morning reveal blood pressure 110/56, pulse 77 to 107, respirations 18-20, O2 sat 92-95%, temperature 98.1. PHYSICAL EXAMINATION: GENERAL: This is a well-developed, well-nourished, very pleasant, thin white female in no apparent distress at this time. HEENT: Reveals normocephalic, nontraumatic cranium. Pupils are equal, round, and reactive. Extrao cular movements intact. Nose and throat are slightly dry. NECK: Supple, without masses, nodes or bruits. LUNGS: Chest clear to auscultation. No rales, rhonchi or wheezes are heard. Breath sounds are dis tant. CARDIOVASCULAR: Reveals a regular rate and rhythm without murmurs, gallops or rubs. ABDOMEN: Soft, nontender, without organomegaly, normal bowel sounds are noted. No rebound or guard ing is noted. : Deferred. EXTREMITIES: Reveal no clubbing, cyanosis or edema, just generalized weakness and poor balance. Th e patient still falls backwards and has already had physical therapy. She does much better when she is not as impulsive and she slows down. NEUROLOGIC: The patient has still left foot drop and some instability with the falling backwards. IMPRESSION: 1. Urinary tract infection, resolved. 2. Generalized weakness. 3. Hypertension. 4. Balance problems, mainly falling backwards. 5. Hyperlipidemia. 6. Dehydration. 7. Hypothyroidism. 8. Rhabdomyolysis, resolved. 9. Malnutrition. 10. Constipation. PLAN: 1. We will continue to encourage the patient to eat better. 2. Continue specifically nutritional supplements. 3. Continue physical therapy and occupational therapy. 4. Consult Neurology outpatient for further evaluation. 5. Continue with the patient walking twice a day with physical therapy and occupational therapy. 6. Continue Lasix and potassium. 7. Continue other medications. 8. Follow electrolytes. 9. Continue DVT and stress ulcer prophylaxis. 10. Continue decubitus precautions.
[2016-12-05] MEDS: Temazepam 15 MG CAP PO SCH (20:32)
[2016-12-05] MEDS: Oxybutynin Chloride 5 MG TAB PO SCH (20:33)
[2016-12-05] MEDS: OLANZapine 5 MG TAB PO SCH (20:33)
[2016-12-06] MEDS: Acetaminophen 325 MG TAB PO PRN (03:43)
[2016-12-06] MEDS: Levothyroxine Sodium 75 MCG TAB PO SCH (05:09)
[2016-12-06] MEDS: Venlafaxine HCl XR 75 MG CAP PO SCH (08:36)
[2016-12-06] MEDS: Carvedilol 6.25 MG TAB PO SCH ×2 (08:36→20:01)
[2016-12-06] MEDS: Polyethylene Glycol 3350 17 GM Packet PO SCH ×2 (08:36→08:38)
[2016-12-06] MEDS: Potassium Chloride 8 MEQ TAB PO SCH (08:36)
[2016-12-06] MEDS: Famotidine 20 MG TAB PO SCH ×2 (08:36→20:02)
[2016-12-06] MEDS: Saccharomyces boulardii 250 MG CAP PO SCH (08:36)
--- NOTE | 2016-12-06 13:52 | PRG ---
DATE OF SERVICE: 12/06/2016. HISTORY OF PRESENT ILLNESS: Ms. Boyd is a very pleasant 81-year-old white female tells that fell an d could not get up. She was found on the floor and eventually some family members came and found he r and brought to the emergency room. She laid there several hours and was somewhat dehydrated and h ad early rhabdomyolysis. She was admitted to the hospital, hydrated up and also found to have urina ry tract infection. She was started on antibiotics and has finished a full 10-day course of that. She eventually was transferred to swing bed for physical therapy and occupational therapy because patricia zambrano is still weak. She is actually doing better, but continues to have some balance problems and is very impulsive. Patricia zambrano is scheduled to go home tomorrow after lunch. The patient has no complaints today. She is very adamant and her is adamant about her going home tomorrow, she could probably benefit from another week or two of physical therapy and rehabili tation, but she is pretty much adamant. OBJECTIVE: Vital signs today reveal a blood pressure this morning 134/65, pulse 78-87, respirations 18-20, O2 saturation 94-97% on room air, temperature 98.0. PHYSICAL EXAMINATION: GENERAL: This is a well-developed, well-nourished, thin white female, in no apparent distress at th is time. HEENT: Reveals normocephalic, nontraumatic cranium. Pupils are equally round and reactive. Extrao cular movements intact. Nose and throat are slightly dry. NECK: Supple, without masses, nodes or bruits. LUNGS: Chest is clear to auscultation. No rales, no rhonchi, no wheezes are heard. No cough is no margarito. The breath sounds are distant. CARDIOVASCULAR: Reveals a regular rate and rhythm without murmurs, gallops or rubs. ABDOMEN: Soft, nontender, without organomegaly, normal bowel sounds are noted. No rebound or guard ing is noted. GENITOURINARY: Deferred. EXTREMITIES: Reveal no clubbing, cyanosis or edema, just generalized weakness. NEUROLOGIC: The patient does have significant bowels. She continues to fall backward, but it is al ready somewhat better. I am instructed her to slow down and not be impulsive. Neurologically, she has some swelling both of her feet and has a left foot drop and we will be following up with Neurolo gy. IMPRESSION: 1. Urinary tract infection, resolved. 2. Generalized weakness. 3. Poor balance. 4. Hypertension. 5. Hyperlipidemia. 6. Dehydration. 7. Hypothyroidism. 8. Rhabdomyolysis, resolved. 9. Malnutrition. 10. Constipation. PLAN: 1. Continue to encourage the patient to eat better. 2. Continue physical therapy and occupational therapy. 3. Continue nutritional supplements. 4. We will consult Neurology outpatient for further evaluation. 5. Continue the patient walked twice a day with physical therapy and occupational therapy. 6. Continue Lasix and potassium. 7. Continue other medications. 8. Continue electrolytes. 9. Continue DVT and stress ulcer prophylaxes. 10. Continue decubitus precautions. The patient is to be discharged tomorrow afternoon, I will see her before discharge.
[2016-12-06] MEDS: OLANZapine 5 MG TAB PO SCH (20:02)
[2016-12-06] MEDS: Temazepam 15 MG CAP PO SCH (20:02)
[2016-12-06] MEDS: Oxybutynin Chloride 5 MG TAB PO SCH (20:02)
[2016-12-07] MEDS: Levothyroxine Sodium 75 MCG TAB PO SCH (06:28)
[2016-12-07] MEDS: Polyethylene Glycol 3350 17 GM Packet PO SCH (08:09)
[2016-12-07] MEDS: Famotidine 20 MG TAB PO SCH (08:10)
[2016-12-07] MEDS: Carvedilol 6.25 MG TAB PO SCH (08:10)
[2016-12-07] MEDS: Saccharomyces boulardii 250 MG CAP PO SCH (08:10)
[2016-12-07] MEDS: Venlafaxine HCl XR 75 MG CAP PO SCH (08:10)
[2016-12-07] MEDS: Acetaminophen 325 MG TAB PO PRN (08:10)
[2016-12-07] MEDS: traMADol HCl 50 MG TAB PO PRN (08:11)
[2016-12-07] MEDS: Potassium Chloride 8 MEQ TAB PO SCH (08:20)
[2016-12-07 14:39] VITALS: BP 116/70; TEMP 97.4
--- NOTE | 2016-12-07 15:39 | DIS ---
DATE OF ADMISSION: 11/22/2016 The patient is a very pleasant 81-year-old white female that was at home when she fell. Her was not around and she laid on the floor for several hours. She eventually was found and brought t o the emergency room and found to be dehydrated, had some early rhabdomyolysis. She was admitted to the hospital, hydrated up and found to have urinary tract infection. She was started on antibiotic s and a 10 day course of that. She eventually slowly improved and had significant weakness. She wa s transferred to swing bed for physical therapy and occupational therapy. The patient is actually much improved, but she continues to have slight left footdrop and turns out just a little bit along with seemingly increased weakness on the left side. She has seen Dr. You Dudley in the past and has had imaging done and basically she said that there is nothing that he co mehnaz do. They are interested in further evaluation by neurologist. PHYSICAL EXAMINATION: VITAL SIGNS: Today reveal blood pressure 116/70, pulse 90-93, respirations 18-20, O2 sat 93%-98% on room air, temperature 97.8. GENERAL: This is a well-developed, well-nourished, very pleasant white female in no apparent distre ss at this time. HEENT: Reveals normocephalic, nontraumatic cranium. Pupils are equally round and reactive. Extrao cular movements intact. Nose and throat are slightly dry. NECK: Supple, without masses, nodes or bruits. CHEST: Clear to auscultation. No rales, no rhonchi, no wheezes are heard. HEART: Reveals regular rate and rhythm without murmurs, gallops or rubs. ABDOMEN: Soft, nontender, without organomegaly, normal bowel sounds are noted. No rebound or guard ing is noted. GENITOURINARY: Exam is deferred. EXTREMITIES: Reveal no clubbing, cyanosis, 1+ edema. We will restart her Lasix 20. NEUROLOGIC: The patient has no focal deficits. She seems to have slight weakness on that left side in the lower extremities. She continues to have some balance problems and tends to fall backwards. She is very impulsive and just wants to get up and go. Some of the impulsivity has actually slowe d down her progression in physical therapy and occupational therapy. DISCHARGE MEDICATIONS: Will include the following; 1. Acetaminophen p.r.n. headache and fever and with her tramadol only as needed for acute pain. 2. Carvedilol 6.25 twice a day. 3. Famotidine 20 mg b.i.d. 4. Levothyroxine 75 mcg a day. 5. Zyprexa 10 mg at bedtime. 6. Ditropan 5 mg each evening. 7. Proventil inhaler 1-2 puffs every 4 hours p.r.n. wheezing. 8. MiraLAX 17 grams daily. 9. Furosemide 20 mEq daily. 10. Potassium 8 mEq daily. 11. Temazepam 15 mg at bedtime. 12. Tramadol rarely. 13. Venlafaxine 150 mg daily. ASSESSMENT: 1. Urinary tract infection, resolved. 2. Generalized weakness, significantly improved. 3. Poor balance, mild to moderately improved. 4. Hypertension, stable. 5. Hyperlipidemia. 6. Dehydration. 7. Hypothyroidism. 8. Rhabdomyolysis, resolved. 9. Malnutrition, improving. 10. Constipation. PLAN: 1. Continue to encourage the patient to eat better in protein. 2. Continue outpatient physical therapy and occupational therapy. 3. Continue nutritional supplementation. 4. The patient will be sent to Dr. Mago Hernández for neurological evaluation and treatment. 5. Continued to have the patient walked significantly. 6. Continue Lasix 20 and potassium 8 as directed. 7. Continue the patient on home medications. 8. Continue decubitus precautions. 9. Patient is encouraged to continue to do exercises at home. 10. I will see the patient in 2-3 weeks.
== END 2016-12-07 15:30 | disposition home health service (06) | DRG 948 ==
LOC: NAV ACUTE 11:13
PROVIDERS: ADMIT Family Medicine; ATTEND Family Medicine
DX: R53.1 Weakness (principal); E46 Unspecified protein-calorie malnutrition; M62.82 Rhabdomyolysis; J44.9 Chronic obstructive pulmonary disease, unspecified; N39.0 Urinary tract infection, site not specified; K21.9 Gastro-esophageal reflux disease without esophagitis; Z91.041 Radiographic dye allergy status; E78.5 Hyperlipidemia, unspecified; M19.90 Unspecified osteoarthritis, unspecified site; I10 Essential (primary) hypertension; E86.0 Dehydration; Z85.3 Personal history of malignant neoplasm of breast; Z87.891 Personal history of nicotine dependence; Z91.81 History of falling; K59.00 Constipation, unspecified; F32.9 Major depressive disorder, single episode, unspecified; Z68.23 Body mass index [BMI] 23.0-23.9, adult
CPT/HCPCS: 36415; 36416; 80048; 80053; 81001; 83880; 84134; 84443; 85025; A4216; J0690; J7042; J7050

== ENCOUNTER 2017-02-17 14:58 | Outpatient (CLI) | payer MEDICARE, OTHER ==
[2017-02-17 17:28] LABS: ALT (SGPT) 13 U/L (8-55); AST (SGOT) 17 U/L (5-34); Albumin 3.8 g/dL (3.4-4.8); Alkaline Phosphatase 89 U/L (40-150); Anion Gap 14 mmol/L (10-20); BUN (Urea Nitrogen) 22 mg/dL (9.8-20.1); Bilirubin, Direct 0.2 mg/dL (0.1-0.3); Bilirubin, Total 0.5 mg/dL (0.2-1.2); Calc. Creatinine Clearance 0 mL/min (70-130); Calcium 9.3 mg/dL (7.8-10.44); Carbon Dioxide 26 mmol/L (23-31); Chloride 106 mmol/L (98-107); Estimated GFR-MDRD 44; Glucose 89 mg/dL (83-110); Potassium 4.9 mmol/L (3.5-5.1); Protein, Total 6.4 g/dL (6.0-8.3); Sodium 141 mmol/L (136-145)
== END 2017-02-17 14:59 | disposition home or self-care (01) ==
LOC: NAV LABSP 14:58
PROVIDERS: ATTEND Family Medicine
DX: N18.3 Chronic kidney disease, stage 3 (moderate) (principal); R47.89 Other speech disturbances
CPT/HCPCS: 80048; 80076

== ENCOUNTER 2017-03-09 12:18 | Outpatient (CLI) | payer MEDICARE, OTHER ==
[2017-03-09 13:03] LABS: Anion Gap 13 mmol/L (10-20); BUN (Urea Nitrogen) 22 mg/dL (9.8-20.1); Calc. Creatinine Clearance 0 mL/min (70-130); Calcium 9.3 mg/dL (7.8-10.44); Carbon Dioxide 25 mmol/L (23-31); Chloride 109 mmol/L (98-107); Estimated GFR-MDRD 36; Glucose 160 mg/dL (83-110); Potassium 4.7 mmol/L (3.5-5.1); Sodium 142 mmol/L (136-145)
== END 2017-03-09 12:19 | disposition home or self-care (01) ==
LOC: NAV LABSP 12:18
PROVIDERS: ATTEND Family Medicine
DX: I50.22 Chronic systolic (congestive) heart failure (principal)
CPT/HCPCS: 36415; 80048